=== PATIENT | female | born 1960 | race African-American/Black ===

== ENCOUNTER 2019-05-25 10:35 | Outpatient (CLI) | payer MEDICARE, MEDICAID, SELFPAY ==
--- NOTE | ~2019-05-25 | MMUS_ITS ---
EXAMINATION: US breast biopsy LT w image, MM post biopsy invasive LT, US breast bx add lesion LT DATE: 05/25/2019 12:22 (accession [id number]), 05/25/2019 12:22 (accession [id number]), 08/2019 12:23 (accession [id number]) INDICATION: Patient with bilateral biopsy proven breast cancer presents for evaluation of additional indeterminate left breast masses. Ultrasound-guided core biopsy is requested to evaluate for maligna ncy. TECHNIQUE AND FINDINGS: The risks and potential benefits of the procedure were discussed with the patient patient including b leeding and infection. A time out was performed. The skin of the left breast was prepared and draped in usual sterile fashion. 1% lidocaine was used for superficial anesthesia. 1% lidocaine with epineph rine was used for deep anesthesia. First, a vacuum-assisted biopsy gun needle was advanced through to the outer edge of a mass at the 12 :00 location 3 cm from the nipple of an inferolateral approach utilizing sonographic guidance. A tota l of two tissue core samples were obtained through the lesion. The lesion was no longer visible after the second sampling. A tissue marker clip was then placed at the biopsy site. Hemostasis was achieve d. Next, attention was directed to a mass at the 11:00 location 4 cm from the nipple. 1% lidocaine wa s used for superficial anesthesia and 1% lidocaine with epinephrine was used for deep anesthesia. A v acuum-assisted biopsy gun needle was advanced to the outer edge of the mass using an inferolateral ap proach. A total of two tissue core samples were obtained through the lesion. The patient did not want to undergo a third sampling due to pain. A tissue marker clip was placed at the biopsy site. Hemosta sis was achieved. A sterile bandage was applied to both lesions. There was no evidence of immediate complication. The patient was given verbal instructions to return to the Emergency Department in the event of severe breast pain or rapid breast enlargement. A two vie w left breast mammogram was obtained to document tissue marker clip placement. This demonstrates the biopsy markers in the upper outer breast at the 1:00 location. There is a 7 mm persistent mass locate d 1 cm anterior to the 10:00 mass biopsy on 04/06/2019. IMPRESSION: 1. Successful ultrasound-guided vacuum-assisted biopsy of left breast mass with tissue marker placeme nt. Of note, the biopsied masses are at the approximately 1:00 location in the breast. 2. Persistent mass at the 10:00 location which remains indeterminate. Patient did not tolerate additi onal biopsies at this time and further recommendation will be made pending results of today's biopsie s. Reviewed, dictated and finalized at location A. CLEANER IMPRESSION: 1. Successful ultrasound-guided vacuum-assisted biopsy of left breast mass with tissue marker placement. Of note, the biopsied masses are at the approximately 1:00 location in the breast. 2. Persistent mass at the 10:00 location which remains indeterminate. Patient d id not tolerate additional biopsies at this time and further recommendation eveline l be made pending results of today's biopsies. IMPRESSION: 1. Successful ultrasound-guided vacuum-assisted biopsy of left breast mass with tissue marker placement. Of note, the biopsied masses are at the approximately 1:00 location in the breast. 2. Persistent mass at the 10:00 location which remains indeterminate. Patient d id not tolerate additional biopsies at this time and further recommendation eveline l be made pending results of today's biopsies.
== END 2019-05-25 10:36 | disposition home or self-care (01) ==
LOC: ANHIMG 10:38
PROVIDERS: PCP Emergency Medicine; Visit Provider Surgery
DX: C50.812 Malignant neoplasm of overlapping sites of left female breast (principal)
CPT/HCPCS: 19083; 19084; 88305; 88342; A4648

== ENCOUNTER 2019-08-24 01:18 | Day surgery (SDC) | payer MEDICARE, MEDICAID, SELFPAY ==
[2019-08-23 08:53] VITALS: BMI 39.9
--- NOTE | 2019-08-23 10:06 | PM.SD ---
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 She had a resection of this. She has developed brain metastases but had radiation therapy in 2018 for treatment. She has had MRIs of the brain in February and in April. These showed no evidence of an increasing intracranial mass. 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 She noticed a left breast nodule last fall. She had ultrasound and mammogram in January. The ultrasound showed an 8 mm right breast lesion at 10:00 a.m.. There were actually 4 lesions in the left breast all in the upper inner quadrant. The patient could not tolerate more than 1 or 2 ultrasound-guided core biopsies so she has had 3 different episodes of core biopsies being done. The 1st was on the right breast March 15, 2019. This 8 mm upper outer quadrant lesion was found to be ductal carcinoma in situ with no Lise medial necrosis. She then underwent ultrasound-guided core biopsy of the 10:00 a.m. lesion on the left breast April 06, 2019. 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 The patient was seen in the office by me in April. Her exam was negative other than she has morbid obesity and has a left breast lump at 11:00 a.m.. She desired to have breast conserving surgery. She was sent back to radiology for where ultrasound-guided core biopsy of 2 of the 3 additional left breast lesions were performed. The lesion at 11:00 a.m. 4 cm from the nipple was grade 1 invasive ductal carcinoma. The lesion at 12:00 p.m. 3 cm from the nipple was also invasive ductal carcinoma grade 1. The 11:00 a.m. lesion 3 cm from the nipple was not biopsied but was anticipated to be removed with breast conserving lumpectomy. She was seen back in the office June 21, 2019. Pathology findings were discussed. Left mastectomy with sentinel node biopsy was recommended. The patient however wants to proceed with lumpectomy instead of mastectomy. She is taken to surgery now for wire localization lumpectomy of the for malignant lesions of the upper inner quadrant of the left breast. Left axillary sentinel lymph node biopsy will also be done. She will also have wire localization lumpectomy of the right breast DCIS in the upper outer quadrant at the same operation. [facility] Past Medical History Medical History Abnormal chest xray Abnormal ultrasound of breast Acute UTI Altered mental status Brain metastases Brain tumor Breast lump lt DVT prophylaxis H/O one miscarriage Headache History of depression Lung cancer NSCLC of right lung Pneumonia Right otitis media Sciatica Seizure Seizure disorder Surgical History Surgical History H/O brain surgery H/O dilation and curettage History of lobectomy of lung Family History Family History Sibling Colon cancer Cerebrovascular accident Sibling Stomach cancer Mother Leukemia Diabetes mellitus Father Dementia Cancer Social History Social History Social History: Patient lives alone. She is a full code. She non ate Syeda her daughter to be the individual making medical decisions for her she is unable. She has 3 children. She is on disability. She quit tobacco in 2017. Smoking packs per day: 0.5 Smoking cigarettes per day: 10.0 Years smoked: 40 Smoking pack-years: 20.00 Smoking status: Light tobacco smoker Tobacco type: cigarettes Second hand tobacco smoke exposure: Yes Alcohol intake: never S
[2019-08-24] VITALS (9 sets, daily range): BP systolic 100–138; BP diastolic 62–76; PULSE 68–90; RESP 12–20; TEMP 35.8–36.3; O2SAT 93–100
--- NOTE | ~2019-08-24 | XR_ITS ---
EXAMINATION: XR chest 2V DATE: 08/24/2019 07:05 INDICATION: Breast cancer. Preoperative evaluation/sinus drainage. TECHNIQUE: PA and lateral views of the chest were obtained. COMPARISON: Chest radiograph dated 02/20/[address] dated 01/17/2019 FINDINGS: Again seen are changes of a right thoracotomy with surgical clips along the right side of the mid to upper mediastinum and resection of the posterior right second rib. Right upper lobectomy with volume loss in the right hemithorax and scarring with blunting at the right costophrenic angle. No new airsp cher opacities, pulmonary edema, pleural effusion or pneumothorax. Heart size is normal. IMPRESSION: 1. No acute cardiopulmonary disease. 2. Volume loss in the right hemithorax related to right upper lobectomy for reported prior right lung cancer. Reviewed, dictated and finalized at location A. IMPRESSION: 1. No acute cardiopulmonary disease. 2. Volume loss in the right hemithorax related to right upper lobectomy for rep orted prior right lung cancer.
--- NOTE | ~2019-08-24 | NM_ITS ---
NM sentinel node inject only 08/24/2019 11:43 CDT INDICATION: Left breast cancer] TECHNIQUE: 1 Millicuries Tc 99m filtered sulfur colloid was injected and 4 aliquots in the anterior u pper outer quadrant of the breast near the areola. No images were obtained.] IMPRESSION: 1: Status post left breast sentinel lymph node radiopharmaceutical injection.] Reviewed, dictated and finalized at location A.
--- NOTE | ~2019-08-24 | MM_ITS ---
CORRECTED REPORT ORDER CORRECTED. 11/15/19 sef EXAMINATION: MM needle loc RT, MM surgical specimen RT, MM surgical specimen LT, MM needle loc LT ea add, MM needle loc LT, MM needle loc LT ea add DATE: 08/24/2019 13:44 CDT INDICATION: Bilateral breast cancer. TECHNIQUE: The procedure for a mammography-guided needle localization was discussed with the patient's. Risks and benefits were detailed, including risks of bleeding, infection, pain, and nondiagnostic specimen. The patient verbalized understanding and agreed to proceed. The time out was performed to verify the patient's name, date of , and site of procedure. The patient was placed in bilateral breast compression, and the skin overlying the breasts were prepped in usual fashion. Utilizing mammography guidance, a needle was advanced into the breasts. The 3 lesions of interest in the left breast were bracketed with wires. There is an additional mass medial aspect of the left breast which was localized with wire. The nodule in the upper outer quadrant of the right breast containing the tissue marker was localized with wire. Two confirmatory films were obtained. The patient tolerated procedure without immediate complication. Specimen radiographs were performed.] FINDINGS: Two view confirmatory films of the breasts demonstrate multiple wires adjacent to the lesions of interest. The tissue marker and masses were contained within the surgical specimen.] IMPRESSION: 1. Successful mammography-guided bilateral breast needle localization. Reviewed, dictated and finalized at location A. MTDD IMPRESSION: 1. Successful mammography-guided bilateral breast needle localization. IMPRESSION: 1. Successful mammography-guided bilateral breast needle localization. IMPRESSION: 1. Successful mammography-guided bilateral breast needle localization. IMPRESSION: 1. Successful mammography-guided bilateral breast needle localization. IMPRESSION: 1. Successful mammography-guided bilateral breast needle localization.
[2019-08-24] MEDS: LACTATED RINGERS 1,000 ML 30 ML IV CONT ×2 (06:40→14:02)
[2019-08-24 07:02] LABS: Basophils Absolute Auto 0.1 K/mm3 (0.0-0.1); Basophils Percent Auto 0.4 % (0.2-1.2); Eosinophils Absolute Auto 0.1 K/mm3 (0-0.3); Eosinophils Percent Auto 0.9 % (0-4.4); Hematocrit 43.7 % (37.0-47.0); Hemoglobin 13.7 g/dL (12.0-15.0); Immature Granulocyte Absolute 0.04 K/mm3 (0.00-0.031); Immature Granulocyte Percent A 0.4 % (0-0.5); Lymphocytes Absolute Auto 3.18 K/mm3 (0.9-3.2); Lymphocytes Percent Auto 27.9 % (18.3-44.2); Mean Corpuscular HGB Conc 31.4 g/dl (32-36); Mean Corpuscular Volume 79.7 fl (80-100); Mean Platelet Volume 11.1 fl (7.4-10.4); Monocytes Absolute Auto 0.7 K/mm3 (0.1-0.6); Monocytes Percent Auto 5.9 % (2.6-8.5); Neutrophils Absolute Auto 7.3 K/mm3 (1.3-6.7); Neutrophils Percent Auto 64.5 % (45.5-73.1); Platelet Count Result 230 k/mm3 (150-375); Red Blood Count 5.48 M/mm3 (4.2-5.4); Red Cell Distribution Width 18.1 % (11.5-14.5); White Blood Count 11.4 K/mm3 (4.5-10.0)
[2019-08-24 07:17] LABS: Alanine Aminotransferase 12 U/L (4-35); Albumin Level 4.2 g/dL (3.5-5.1); Alkaline Phosphatase 73 U/L (38-126); Aspartate Amino Transferase 18 U/L (14-36); Bilirubin,Total 0.3 mg/dL (0.2-1.3); Blood Urea Nitrogen 15 mg/dL (7-17); Calcium 9.3 mg/dL (8.4-10.2); Carbon Dioxide 29 mmol/L (22-30); Chloride 106 mmol/L (98-107); Estimated CRCL calculation 65 ml/min; Estimated Glomerular Filt Rate > 60; Glucose 98 mg/dL (65-105); Potassium 4.1 mmol/L (3.4-5.0); Sodium 138 mmol/L (137-145)
--- NOTE | 2019-08-24 09:05 | SUR.PREOP ---
PT TO [facility] AT 0715,RETURNED FROM N.M. AT 0900
--- NOTE | 2019-08-24 09:44 | WPDANESEPPF ---
Anes - Initial Pre Proc Eval Procedure: Operation Date: 08/24/19 10:30 Proposed Procedures p Left Breast Ultrasound and/or Mammogram Guided Needle Localization, Left Breast Lumpectomy With Left [place] Lymph Node Biopsy, - John Washington MD s Right Breast Lumpectomy With Right Breast Ultrasound and/or Mammogram Guided Needle Localization - John Washington MD Date/Time: 08/24/19 09:44 Surgeon: John Washington MD Pre Op Diagnosis: Left breast CA, Right breast DCIS Patient Data Age: 59 Gender: F Height: 5 ft 5 in Weight: 117.3 kg Last Vital Signs Temp 35.8 C L 08/24/19 06:44 Pulse 88 08/24/19 06:44 Resp 18 08/24/19 06:44 BP 100/64 08/24/19 06:44 Pulse Ox 100 08/24/19 06:44 Allergies Allergy/AdvReac Type Severity Reaction Status Date / Time ciprofloxacin Allergy Unknown RASH, EARS Verified 08/24/19 07:20 RINGING aspirin AdvReac Unknown GI UPSET Verified 08/24/19 07:20 AND PAIN ketorolac [From Toradol] AdvReac Anxiety Verified 08/24/19 07:20 Home Medications Medication Instructions Recorded Confirmed Type No Home Medications 08/23/19 08/24/19 History Laboratory Tests 08/24/19 08/24/19 06:57 06:57 WBC 11.4 K/mm3 H K/mm3 (4.5-10.0) RBC 5.48 M/mm3 H M/mm3 (4.2-5.4) Hgb 13.7 g/dL g/dL (12.0-15.0) Hct 43.7 % % (37.0-47.0) MCV 79.7 fl L fl (80-100) MCH 25.0 pg L pg (26-34) MCHC 31.4 g/dl L g/dl (32-36) RDW 18.1 % H % (11.5-14.5) Plt Count 230 k/mm3 k/mm3 (150-375) MPV 11.1 fl H fl (7.4-10.4) Immature Gran % (Auto) 0.4 % % (0-0.5) Neut % (Auto) 64.5 % % (45.5-73.1) Lymph % (Auto) 27.9 % % (18.3-44.2) [place] % (Auto) 5.9 % % (2.6-8.5) Eos % (Auto) 0.9 % % (0-4.4) Baso % (Auto) 0.4 % % (0.2-1.2) Lymph # (Auto) 3.18 K/mm3 K/mm3 (0.9-3.2) [place] # (Auto) 0.7 K/mm3 H K/mm3 (0.1-0.6) Eos # (Auto) 0.1 K/mm3 K/mm3 (0-0.3) Baso # (Auto) 0.1 K/mm3 K/mm3 (0.0-0.1) Abs Immat Gran (auto) 0.04 K/mm3 H K/mm3 (0.00-0.031) Absolute Neuts (auto) 7.3 K/mm3 H K/mm3 (1.3-6.7) Absolute Nucleated RBC 0.0 K/mm3 K/mm3 (0.0-0.012) Nucleated RBC % 0.0 % % (0.0-0.2) Sodium 138 mmol/L mmol/L (137-145) Potassium 4.1 mmol/L mmol/L (3.4-5.0) Chloride 106 mmol/L mmol/L (98-107) Carbon Dioxide 29 mmol/L mmol/L (22-30) BUN 15 mg/dL mg/dL (7-17) Creatinine 1.00 mg/dL mg/dL (0.7-1.0) Estim Creat Clear Calc 65 ml/min ml/min Estimated GFR > 60 (59 - ) Glucose 98 mg/dL mg/dL (65-105) Calcium 9.3 mg/dL mg/dL (8.4-10.2) Total Bilirubin 0.3 mg/dL mg/dL (0.2-1.3) AST 18 U/L U/L (14-36) ALT 12 U/L U/L (4-35) Alkaline Phosphatase 73 U/L U/L (38-126) Total Protein 8.0 g/dL g/dL (6.3-8.2) Albumin 4.2 g/dL g/dL (3.5-5.1) Patient hx anesthesia problems: none Family hx anesthesia problems: none PMFSH Past Medical History Medical History Abnormal chest xray Abnormal ultrasound of breast Acute UTI Altered mental status Brain metastases Brain tumor Breast lump lt DVT prophylaxis H/O one miscarriage Headache History of depression Lung cancer NSCLC of right lung Pneumonia Right otitis media Sciatica Seizure Seizure disorder Surgical History Surgical History H/O brain surgery H/O dilation and curettage History of lobectomy of lung Family History Family History Sibling Colon cancer Cerebrovascular accident Sibling Stomach cancer Mother Leukemia Diabetes mellitus Father Dementia Cancer Social History Social History Socia
--- NOTE | 2019-08-24 10:03 | WPDHPUPDATE1 ---
History and Physical Update Update Date/Time: 08/24/19 10:03 History and Physical has been reviewed, including an updated exam of the patient. There are NO changes in the patient's condition. Risks, benefits, and alternatives have been discussed and questions answered. Patient agrees to proceed with procedure.
[2019-08-24] MEDS: BUPIVACAINE/EPINEPHRINE 0.5% 30 ML VIAL INFILTRATE (13:29)
[2019-08-24] MEDS: ISOSULFAN BLUE 1% INJ 5 ML VIAL SUB-Q (13:54)
--- NOTE | 2019-08-24 14:04 | PM.PROC ---
Procedure Note - Detailed Date of procedure: 08/24/19 Pre-op diagnosis: Left breast CA, Right breast DCIS Invasive ductal carcinoma upper inner quadrant left breast x4, ductal carcinoma in situ right breast upper outer quadrant Post-op diagnosis: same Procedure performed: Wire localization multiple left breast malignant lesions, extensive left breast lumpectomy, left axillary sentinel node biopsy. Wire localization right breast lumpectomy Description of procedure: The patient went to x-ray the morning of surgery and had wire localization of multiple breast cancers of the left breast prior to surgery. She also had wire localization of the DCIS of the right breast prior to surgery. I spoke with the radiologist, Dr. Gagnon, and reviewed x-rays with him. We talked before the wire localization and I reviewed the films with him after the localization. The patient was taken to surgery and induced into general anesthesia. We prepped and draped the left breast and left axilla prepping the left arm mobile in into the field. The right breast was kept taped to avoid moving the localizing wire. This would be attended after we completed the left breast and axillary surgery. Care was taken to avoid moving the localizing wires of the left breast. Radioisotope injection had been done in x-ray prior to the surgery. Isosulfan Blue dye was infiltrated under the nipple and gentle breast massage was carried out. The navigator was then used and areas of high isotope emission in the left axilla were found. A hairline incision was marked on the skin. Incision was made and dissection carried through the subcutaneous fat. As we entered axillary fat, I again used the navigator and found an area of very high isotope emission. Further dissection showed a good sized but not significantly enlarged axillary node. It was not dye stained. I dissected it using primarily the cautery but also clips. Eventually it was completely excised. I confirmed it had very high isotope emission with the navigator. It was sent as left axillary sentinel node 1. I then found a 2nd area of very high isotope emission. This was exposed and dissection to a 2nd enlarged lymph node was carried out. This node was strongly stained with dye. Dye stained lymphatics leading to the node were also found. This node was dissected free from the surrounding axillary tissue. Clips were used to divide the lymphatics going to the node. This had high isotope emission as well. It was dissected free and sent as left axillary sentinel node 2. Further evaluation both by palpation and the navigator showed a 3rd node that had very high isotope emission more in the lateral axilla. This node was not as enlarged as numbers 1 and 2 were. None the less, it had very high isotope emission. It was dissected free using the same technique and submitted as left axillary sentinel node 3. I checked for further nodes of suspicion. None were seen. The axillary wound was closed in layers with interrupted 3 0 Monocryl suture. Subcuticular running 3 0 Monocryl skin stitch was used to close the skin. We then quarantined the axillary incision with a laparotomy sponge and blue towel. We turned our attention to the tumors in the upper mid and inner quadrants of the left breast. A curved incision was drawn on the skin across the upper left breast. The incision was closer to the nipple then the exit sites of the various wires. Local anesthetic was infiltrated into the skin of the incision. Incision was made and dissection was carried no more than a cm into the subcutaneous tissue. From there, I then dissected cephalad and found each of the 3 wires. Each was pulled through the skin and brought out the wound. I then tried to dissect superficially above each of the tumors. The tumor associated with the more cephalad wire however seemed to actually abut the skin. I did try to 1st dissect it off the skin and then dissected around it both in a cephalad an
--- NOTE | 2019-08-24 15:02 | SUR.PHASEI ---
1455 - family called and updated on pt's status.
== END 2019-08-24 16:39 | disposition home or self-care (01) ==
PROVIDERS: PCP Emergency Medicine; Visit Provider Surgery
PROC: (CPT 19301; principal; 2019-08-24 10:30)
PROC: (CPT 19301; 2019-08-24 10:30)
DX: C50.212 Malignant neoplasm of upper-inner quadrant of left female breast (principal); D05.12 Intraductal carcinoma in situ of left breast; D05.11 Intraductal carcinoma in situ of right breast; C77.3 Secondary and unspecified malignant neoplasm of axilla and upper limb lymph nodes; G40.909 Epilepsy, unspecified, not intractable, without status epilepticus; Z85.118 Personal history of other malignant neoplasm of bronchus and lung; Z85.841 Personal history of malignant neoplasm of brain; E66.01 Morbid (severe) obesity due to excess calories; Z68.41 Body mass index [BMI] 40.0-44.9, adult; Z87.891 Personal history of nicotine dependence
CPT/HCPCS: 19301; 38525; 19281; 19282; 36415; 38792; 71046; 76098; 80053; 85025; 88305; 88307; 88342; A9520; C1713; C1769; J0330; J0690; J2250; J2370; J2405; J2704; J2710; J3010; J7120

== ENCOUNTER 2019-09-20 00:27 | Outpatient (CLI) | payer MEDICARE, MEDICAID, SELFPAY ==
[2019-09-20 18:39] LABS: SARS-CoV-2 RNA PCR Negative
== END 2019-09-20 00:28 | disposition home or self-care (01) ==
LOC: ANHCOVIDDT 00:27
PROVIDERS: PCP Emergency Medicine; Visit Provider Surgery
DX: Z01.812 Encounter for preprocedural laboratory examination (principal); Z20.828 Contact with and (suspected) exposure to other viral communicable diseases
CPT/HCPCS: 87635; C9803; U0003

== ENCOUNTER 2019-09-22 00:55 | Day surgery (SDC) | payer MEDICARE, MEDICAID, SELFPAY ==
[2019-09-14 13:14] VITALS: BMI 39.1
[2019-09-22] VITALS (9 sets, daily range): BP systolic 104–136; BP diastolic 61–89; PULSE 65–90; RESP 14–18; TEMP 36.1; O2SAT 72–99
--- NOTE | ~2019-09-22 | NM_ITS ---
EXAMINATION: NM sentinel node inject only DATE: 09/22/2019 13:54 INDICATION: Right breast cancer TECHNIQUE: 1 mCi Tc-99m filtered sulfur colloid was injected in 4 aliquots in the anterior breast leydi r the areola. No images were obtained. IMPRESSION: 1. Right breast sentinel lymph node radiopharmaceutical injection. Reviewed, dictated and finalized at location A.
--- NOTE | 2019-09-22 08:20 | WPDANESEPPF ---
Anes - Initial Pre Proc Eval Procedure: Operation Date: 09/22/19 10:30 Proposed Procedures p Re-Excision Of Right Breast Lumpectomy, Right Axillary [place] Node Biopsy - John Washington MD Date/Time: 09/22/19 08:20 Surgeon: John Washington MD Pre Op Diagnosis: Billateral Breast Cancer Patient Data Age: 59 Gender: F Height: 1.7 m Weight: 113.4 kg Allergies Allergy/AdvReac Type Severity Reaction Status Date / Time ciprofloxacin Allergy Unknown RASH, EARS Verified 09/14/19 13:12 RINGING aspirin AdvReac Unknown GI UPSET Verified 09/14/19 13:12 AND PAIN ketorolac [From Toradol] AdvReac Anxiety Verified 09/14/19 13:12 NSAIDS (Non-Steroidal AdvReac Gastrointestinal Verified 09/14/19 13:12 Anti-Inflamma Upset Home Medications Medication Instructions Recorded Confirmed Type oxycodone-acetaminophen 0.5 - 1 tablet PO Q6H PRN #20 08/24/19 09/14/19 Rx tablet Vitamin B-12 1 tablet PO DAILY 09/14/19 09/14/19 History ascorbic acid (vitamin C) [Vitamin 1 g PO DAILY 09/14/19 09/14/19 History C] garlic 1 cap PO DAILY 09/14/19 09/14/19 History multivitamin 1 tablet PO DAILY 09/14/19 09/14/19 History omega 6-[id number]-fish oil [Fish Oil] 1 cap PO DAILY 09/14/19 09/14/19 History Patient hx anesthesia problems: none Family hx anesthesia problems: none PMFSH Past Medical History Medical History Abnormal chest xray Abnormal ultrasound of breast Acute UTI Altered mental status Anxiety Bilateral breast cancer Brain aneurysm Brain metastases Brain tumor Breast lump lt Depression DVT prophylaxis H/O one miscarriage Headache History of cancer metastatic to brain History of depression Lung cancer Morbid obesity with BMI of 40.0-44.9, adult NSCLC of right lung Pneumonia Right otitis media Sciatica Seizure LAST 04/2019- NON-COMPLIANT WITH MEDICATIONS Seizure disorder Tobacco abuse Surgical History Surgical History H/O brain surgery brain tumor removed 2016 - brain cancer, INTERMITTENT CONFUSION, HEADACHES H/O dilation and curettage History of lobectomy of lung lung cancer lower Right lobe removed in surgery 09/2016- O2 PRN Family History Family History Sibling Colon cancer Cerebrovascular accident Sibling Stomach cancer Mother Leukemia Diabetes mellitus Father Dementia Cancer Social History Social History Social History: Patient lives alone. She is a full code. She non ate Syeda her daughter to be the individual making medical decisions for her she is unable. She has 3 children. She is on disability. She quit tobacco in 2017. Smoking packs per day: 0.5 Smoking cigarettes per day: 10.0 Years smoked: 40 Smoking pack-years: 20.00 Smoking status: Light tobacco smoker Tobacco type: cigarettes Second hand tobacco smoke exposure: Yes Alcohol intake: never Substance use: never Substance use type: does not use Gender identity (if verbalized by the patient): Female Spiritual care concerns: No Agree to blood products: Yes Anes - Eval Final PreProcedure Day of Procedure 09/22/19 08:20 Patient weight: morbidly obese Heart: regular rate and rhythm Lungs: clear to auscultation and normal air movement Airway: Mallampati scale class II Neurological: alert and oriented Last oral intake: >/= 8 hours ASA classification: IV Emergent: no Anesthetic plan: proceed Anesthesia type and monitoring: general ETT Informed Consent: The patient's anesthetic plan and its attendant risks and benefits were discussed with the patient/family/POA. Questions were solicited and answers provided to the satisfaction of the patient/family/POA.
[2019-09-22] MEDS: LACTATED RINGERS 1,000 ML 30 ML IV CONT ×2 (10:05→12:45)
--- NOTE | 2019-09-22 10:09 | SUR.PREOP ---
1009 pt left for nuc med
--- NOTE | 2019-09-22 10:29 | WPDHPUPDATE1 ---
History and Physical Update Update Date/Time: 09/22/19 10:29 History and Physical has been reviewed, including an updated exam of the patient. There are NO changes in the patient's condition. Risks, benefits, and alternatives have been discussed and questions answered. Patient agrees to proceed with procedure.
--- NOTE | 2019-09-22 10:50 | SUR.PREOP ---
1033 pt returned from nuc med
[2019-09-22] MEDS: ceFAZolin 2 GM/D5W 50 ML 2 GM/50 ML BAG IVPB (11:02)
[2019-09-22] MEDS: ISOSULFAN BLUE 1% INJ 5 ML VIAL SUB-Q (11:40)
--- NOTE | 2019-09-22 11:42 | SUR.PREOP ---
0900 pt was not here, called pt she said she was sleeping and thought she had to be here at 1030. She said she will be here in 30 minutes
--- NOTE | 2019-09-22 12:05 | SUR.OPER ---
Breast specimens sent fresh for permanent with MARILYN Hunter and received in pathology by Lucero
[2019-09-22] MEDS: BUPIVACAINE/EPINEPHRINE 0.5% 30 ML VIAL INFILTRATE (12:10)
--- NOTE | 2019-09-22 12:29 | SUR.OPER ---
Dale transported specimens and were received by Penelope in pathology.
--- NOTE | 2019-09-22 12:51 | PM.PROC ---
Procedure Note - Detailed Date of procedure: 09/22/19 Pre-op diagnosis: Invasive cancer, right breast Invasive ductal cancer right breast, positive margins after lumpectomy Post-op diagnosis: same Procedure performed: Right axillary sentinel lymph node biopsy, margin re-excision right breast Description of procedure: The patient was taken to surgery and induced into general anesthesia. The right breast and axilla were prepped and draped. The right arm was prepped and draped such that it was mobile in in the field. The patient had been to x-ray before surgery for radioisotope injection under the right nipple. The navigator was used to survey the right axilla. An area of high isotope emission was marked on the skin. A hairline axillary incision was marked on the skin. Lymphazurin blue dye was then infiltrated under the right nipple. Gentle breast massage was carried out. The right axillary incision was then made and dissection was carried down through the superficial subcutaneous tissue. We encountered a very superficial but enlarged, dye stained right axillary lymph node. This was carefully dissected free from the surrounding subcutaneous. Several dye stained lymphatics were leading to the lymph node and these were each clipped and divided. Vascular structures were either clipped or cauterized and divided. Eventually this lymph node was dissected free. I rechecked it again with the navigator. It had a very high isotope emission. It was also stained intensely blue. This was passed off to pathology as right axillary sentinel lymph node 1. The navigator was then again placed in the right axilla. A 2nd lymph node that was deeper than the 1st was identified using the navigator. We exposed this area and found another lymph node. This was also dye stained but less intensely than the 1st node. This again was dissected using blunt and sharp dissection. Clips were used for lymphatics and the cautery was used as well. Eventually this node was removed. It was not as large as node 1. It did have some dye staining and I rechecked it for isotope emission. Emission was very high. This was sent as right axillary sentinel node 2. We rechecked again in the axilla and found another area of high isotope emission closer to the right axillary vein. This area was exposed. Dissection here showed actually 2 lymph nodes very close together. These were carefully dissected free using the same technique. Once these 2 lymph nodes were removed they were dissected apart from 1 another. Neither was dye stained nor enlarged. One of the nodes had a very high isotope emission. This was sent as left axillary sentinel node 3. The other lymph node did not have isotope emission. It was sent as an additional left axillary lymph node. We checked again with the navigator and really found no other areas of increased isotope emission. I palpated in the axilla and explored as well. No other suspicious nodes were found. The axilla was then closed in layers with interrupted 3 0 Monocryl suture. Subcuticular interrupted 3 0 Monocryl skin stitches were placed. A running 4 0 Monocryl subcuticular skin suture was placed. The wound was dressed with Exofin surgical adhesive. Once this adhesive had dried, we then turned our attention to the right breast re-excision lumpectomy. Local anesthetic using 0.5% Marcaine with epinephrine was infiltrated into the previous right breast lumpectomy scar. This was then again opened and dissection through the subcutaneous was carried out. A pocket with seroma was found. The seroma cavity extended cephalad from the incision. I extended the incision cephalad so that the entire previous lumpectomy pocket was well visualized and access to the pocket was excellent. I then exposed the lateral margin. A 5-10 mm width of breast tissue was excised from the lumpectomy cavity corresponding to the lateral margin. A suture was placed on the inner aspect. This was sent a
--- NOTE | 2019-09-22 13:21 | SUR.PHASEI ---
1321 - pt c/o tongue feeling swollen. left side of tongue appears swollen. dr. avelar called and updated. no orders received. pt denies SOB. vss
--- NOTE | 2019-09-22 13:37 | SUR.PHASEI ---
1643 - dr. avelar at bedside. assessing pt's tongue swelling.
[2019-09-22] MEDS: ONDANSETRON INJ 4 MG/2 ML VIAL IV PUSH (13:44)
== END 2019-09-22 15:20 | disposition home or self-care (01) ==
PROVIDERS: PCP Emergency Medicine; Visit Provider Surgery
PROC: (CPT 19301; principal; 2019-09-22 10:30)
DX: C50.911 Malignant neoplasm of unspecified site of right female breast (principal); C77.3 Secondary and unspecified malignant neoplasm of axilla and upper limb lymph nodes; F41.8 Other specified anxiety disorders; Z85.841 Personal history of malignant neoplasm of brain; Z85.118 Personal history of other malignant neoplasm of bronchus and lung; G40.909 Epilepsy, unspecified, not intractable, without status epilepticus; Z91.14 Patient's other noncompliance with medication regimen; E66.01 Morbid (severe) obesity due to excess calories; Z68.41 Body mass index [BMI] 40.0-44.9, adult; Z90.2 Acquired absence of lung [part of]; Z87.891 Personal history of nicotine dependence
CPT/HCPCS: 19301; 38525; 38792; 88305; 88307; 88342; A9520; C1713; J0690; J1100; J1170; J2250; J2405; J2704; J2710; J3010; J7030; J7120

== ENCOUNTER 2019-10-25 09:28 | Outpatient (CLI) | payer MEDICARE, MEDICAID, SELFPAY ==
--- NOTE | ~2019-10-25 | PE_ITS ---
EXAMINATION: PET skull to mid thigh DATE: 10/25/2019 12:13 INDICATION: Breast cancer TECHNIQUE: Blood glucose level was 105 mg/dL. 9.536 mCi of 18-fluorodeoxyglucose (18-FDG) was adminis tered i.v. Low dose computed tomography (CT) images were acquired from the base of the brain to the p roximal thighs for attenuation correction and anatomic localization. Positron emission tomography (PE T) images were acquired in the same distribution beginning 69 minutes after injection. Images includi ng fused PET/CT images were reconstructed in axial, coronal, and sagittal planes. Automated exposure control technique was employed. The dose-length product was 1251.46mGy-cm. COMPARISON: PET/CT dated 04/01/[address] dated 01/17/2019 FINDINGS: Head/neck: There is a region of decreased FDG uptake underlying a small right occipital craniotomy likely relate d to encephalomalacia post treatment of an early or metastatic lesion. There is symmetric increased a ctivity in the nasal and oral cavities, palatine tonsils, parotid glands, submandibular glands, linda ngeal muscles and ocular muscles without CT correlate, likely physiologic. No pathologically enlarged cervical lymphadenopathy or suspicious foci of increased FDG uptake in the visualized head or neck. Chest: Postoperative change of prior bilateral breast lumpectomies and bilateral axillary lymph node dissect ions. There is mild FDG uptake along the peripheral margins of a 3 x 1.8 cm centrally fluid attenuati on likely postoperative seroma overlying the left pectoralis muscle. Skin thickening with mild increa sed FDG uptake in both breasts. Postoperative change of prior right upper lobectomy with resection of the posterior right second rib. Mild emphysema. Interval increase in size of a now 4.2 x 2.0 cm pleu ral-based mass at the anterolateral base of the right lower lobe which demonstrates mild increased FD G uptake with maximal SUV of 3.0. The mass is increase in size since the most recent CT at which time it measured approximately 3.1 x 1.2 cm in corresponding dimensions although the degree of FDG uptake is significantly less than at the time of the prior PET study at which time the maximal SUV was 8.2. Lungs are otherwise clear with no other suspicious pulmonary nodules, pneumonia, pulmonary edema or pleural effusion. Heart size is normal. No pericardial effusion. No pathologically enlarged or FDG av id thoracic lymphadenopathy. Abdomen/pelvis/proximal thighs: Physiologic renal accumulation and excretion of FDG activity in the kidneys, bladder and along portio ns of ureters. Normal degree and heterogenous pattern of increased uptake throughout the liver withou t radiologic correlate or dominant FDG avid lesion. The gallbladder, pancreas, spleen and bilateral a drenal glands are normal. Mild uptake scattered throughout the bowels without radiologic correlate, a lso likely physiologic. Anteverted fibroid uterus with coarse calcifications within several of the ut erine fibroids. There is a small region of relatively intense FDG uptake at the right side of the cer vix with maximal SUV of 12.3 which is concerning for cervical cancer. No other abnormal foci of incre ased FDG uptake or pathologically enlarged lymphadenopathy in the abdomen, pelvis or proximal thighs. Musculoskeletal: Age-indeterminate inferior endplate compression fracture at C5 which is new since the prior study but without increased FDG uptake to suggest acute fracture. No suspicious lytic, blastic or FDG avid bon e lesions. IMPRESSION: 1. Postoperative changes of bilateral breast lumpectomies and axillary lymph node dissections with mi ld increased uptake at the postoperative bed site both breasts with small residual seroma on the left . This most likely represents residual reactive change related to the recent surgery although differe ntial would include residual malignancy. 2. Mild increase
[2019-10-25 10:17] LABS: Estimated Glomerular Filt Rate > 60
[2019-10-25 10:37] LABS: Glucose Point of Care 105 (65-105)
== END 2019-10-25 09:29 | disposition home or self-care (01) ==
PROVIDERS: PCP Emergency Medicine; Visit Provider Radiology Radiation Oncology
DX: C34.11 Malignant neoplasm of upper lobe, right bronchus or lung (principal); C34.31 Malignant neoplasm of lower lobe, right bronchus or lung; C50.411 Malignant neoplasm of upper-outer quadrant of right female breast; C50.812 Malignant neoplasm of overlapping sites of left female breast; C79.31 Secondary malignant neoplasm of brain
CPT/HCPCS: 36415; 78815; A9552

== ENCOUNTER 2020-02-06 14:41 | Outpatient (CLI) | payer MEDICARE, MEDICAID, SELFPAY ==
--- NOTE | ~2020-02-06 | MR_ITS ---
EXAMINATION: MR brain/brain stem wo/w con DATE: 02/06/2020 16:26 INDICATION: Malignant neoplasm metastatic to brain. TECHNIQUE: Magnetic resonance imaging (MRI) of the brain and brainstem was performed without and with 20 mL MultiHance intravenous contrast. Sequences included sagittal and axial T1-weighted FSE, axial diffusion-weighted FS EPI, axial T2*-weighted GRE, axial T2-weighted FLAIR Propeller, and axial T2-we ighted Propeller. The patient vomited and terminated the exam before postcontrast T1-weighted imaging . Apparent diffusion coefficient (ADC) maps were created. COMPARISON: Brain MRI 05/10/2019 FINDINGS: There is chronic encephalomalacia in right occipital lobe with foci of old blood products v ersus calcification. There are scattered areas of nonspecific increased T2-weighted signal intensity in the cerebral white matter, which is within normal limits for the patient's age. There is no abnorm al mass lesion. The ventricles are normal in size. The paranasal sinuses are clear. The mastoid air c ells are normal. There are changes of right posterior craniotomy. IMPRESSION: 1. Chronic encephalomalacia in right occipital lobe. Reviewed, dictated and finalized at location A.
[2020-02-06 15:51] LABS: Estimated Glomerular Filt Rate > 60
== END 2020-02-06 14:42 | disposition home or self-care (01) ==
PROVIDERS: PCP Emergency Medicine; Visit Provider Radiology Radiation Oncology
DX: C79.31 Secondary malignant neoplasm of brain (principal); G93.89 Other specified disorders of brain
CPT/HCPCS: 70553; A9577

== ENCOUNTER 2020-02-16 20:35 | Emergency (ER) | payer MEDICARE, MEDICAID, SELFPAY ==
--- NOTE | ~2020-02-16 | CT_ITS ---
EXAMINATION: CT BRAIN W/O DATE: 02/16/2020 21:54 INDICATION: Mental status. Seizures. TECHNIQUE: Computed tomography (CT) of the head was performed without intravenous contrast. The dose- length product was 605.33 mGy-cm. The mA was adjusted according to patient size. Iterative reconstruction technique was employed. COMPARISON: No prior studies for comparison. FINDINGS: Normal brain parenchymal volume for age. Normal burleson-white differentiation. No acute intrac ranial hemorrhage, infarction, mass or mass effect. No ventriculomegaly or midline shift. Midline sagittal images demonstrate a normal corpus callosum, c raniovertebral junction and sella turcica. Basilar cisterns are patent. Paranasal sinuses and mastoids are pneumatized. No depressed skull fractures. IMPRESSION: 1. No acute intracranial abnormality. Reviewed, dictated and finalized at location A.
--- NOTE | ~2020-02-16 | XR_ITS ---
XR chest 1V portable 02/16/2020 22:01 Indication: Covid Positive. Transient alteration of awareness. Procedure: AP portable chest Comparison: Comparison to multiple prior studies sequentially, with oldest reviewed study dated . Findings: There are ill-defined infiltrates of the upper, mid and lower lung zones bilaterally. Heart size normal. No pleural effusion or pneumothorax. Impression: 1: Diffuse bilateral infiltrates which may represent pneumonia or edema. Reviewed, dictated and finalized at location A. Impression: 1: Diffuse bilateral infiltrates which may represent pneumonia or edema.
[2020-02-16 20:28] VITALS: TEMP 37.8
--- NOTE | 2020-02-16 21:29 | ECG_ITS ---
Measurements Intervals [place] Rate: 96 P: 65 ID: [id number] QRS: 42 QRSD: 94 T: 49 QT: 338 QTc: 429 Interpretive Statements SINUS RHYTHM NORMAL ECG Electronically Signed On 02-17-2020 7:00:06 CDT by Dev Tang D.O.
[2020-02-16 21:37] VITALS: BP 128/73; PULSE 95; RESP 20; TEMP 36.7; O2SAT 97
[2020-02-16 21:44] LABS: Basophils Percent Auto 0.3 % (0.2-1.2); Eosinophils Percent Auto 0.1 % (0-4.4); Hematocrit 43.5 % (37.0-47.0); Hemoglobin 13.4 g/dL (12.0-15.0); Immature Granulocyte Absolute 0.03 K/mm3 (0.00-0.031); Immature Granulocyte Percent A 0.4 % (0-0.5); Lymphocytes Percent Auto 24.1 % (18.3-44.2); Mean Corpuscular HGB Conc 30.8 g/dl (32-36); Mean Corpuscular Volume 81.2 fl (80-100); Mean Platelet Volume 10.9 fl (7.4-10.4); Monocytes Absolute Auto 0.5 K/mm3 (0.1-0.6); Monocytes Percent Auto 6.8 % (2.6-8.5); Neutrophils Absolute Auto 4.8 K/mm3 (1.3-6.7); Neutrophils Percent Auto 68.3 % (45.5-73.1); Platelet Count Result 151 k/mm3 (150-375); Red Blood Count 5.36 M/mm3 (4.2-5.4); Red Cell Distribution Width 16.5 % (11.5-14.5); White Blood Count 7.1 K/mm3 (4.5-10.0)
[2020-02-16 21:53] LABS: INR 0.9; Prothrombin Time 11.6 Seconds (11.1-14.7)
[2020-02-16 21:54] LABS: Partial Thromboplastin Time 28.8 SECONDS (22.3-36.8)
[2020-02-16 21:55] LABS: Anion Gap 5 mmol/L (8-16); Blood Urea Nitrogen 12 mg/dL (7-17); Calcium 8.7 mg/dL (8.4-10.2); Carbon Dioxide 31 mmol/L (22-30); Chloride 102 mmol/L (98-107); Estimated CRCL calculation 69 ml/min; Estimated Glomerular Filt Rate > 60; Glucose 104 mg/dL (65-105); Potassium 4.6 mmol/L (3.4-5.0); Sodium 138 mmol/L (137-145)
[2020-02-16] MEDS: levETIRAcetam 1000MG/NACL100ML 1,000 MG/100 ML BAG 400 MG IVPB (21:57)
[2020-02-16] MEDS: LORazepam INJ (*CRX) 2 MG/ML VIAL 0.5 MG IV PUSH (21:58)
[2020-02-16 22:07] LABS: Troponin I < 0.012 ng/mL (0.000-0.034)
[2020-02-16 23:30] VITALS: BP 121/72; PULSE 78; RESP 18; O2SAT 97
--- NOTE | 2020-02-16 23:36 | PC.NURSE ---
Called lab to add on BNP
[2020-02-16 23:56] LABS: NT Pro B Type Natriuretic Pept 27 PG/ML (5-100)
--- NOTE | 2020-02-17 00:11 | ED.GENADULT ---
HPI - General Adult General Chief complaint: Altered Mental Status Stated complaint: ams/covid + Time Seen by Provider: 02/16/20 20:51 History of Present Illness HPI narrative: Patient is a 59-year-old female who presents ER with change in mental status. Patients family member reports that at home patient developed left-sided weakness and then her head started bouncing looking at the left side. Patient then became confused. This is happened before supper times. Patient has history of brain surgery for tumor excision in 2018. She had a plain MRI from 10 days ago. There is some chronic encephalomalacia noted however. Sounds as if patient is supposed to take Keppra at home but does not. She has been seen for similar symptoms earlier in the year here. Of note patient was diagnosed with Covid 10 days ago and was [facility] Therefore patient is no longer having fevers but still has some residual cough. Related Data Home Medications Medication Instructions Recorded Confirmed Vitamin B-12 1 tablet PO DAILY 09/14/19 10/12/19 ascorbic acid (vitamin C) [Vitamin 1 g PO DAILY 09/14/19 10/12/19 C] garlic 1 cap PO DAILY 09/14/19 10/12/19 multivitamin 1 tablet PO DAILY 09/14/19 10/12/19 omega 3-pcx-kfn-fish oil [Fish Oil] 1 cap PO DAILY 09/14/19 10/12/19 Allergies Allergy/AdvReac Type Severity Reaction Status Date / Time ciprofloxacin Allergy Unknown RASH, EARS Verified 10/10/19 10:08 RINGING aspirin AdvReac Unknown GI UPSET Verified 10/10/19 10:08 AND PAIN ketorolac [From Toradol] AdvReac Anxiety Verified 10/10/19 10:08 NSAIDS (Non-Steroidal AdvReac Gastrointestinal Verified 10/10/19 10:08 Anti-Inflamma Upset Review of Systems Review of Systems: All systems reviewed & are unremarkable except as noted in HPI and below Constitutional: Constitutional: Denies chills, Denies fever(s) and Denies weakness Cardiovascular: Cardiovascular: Denies chest pain and Denies radiating jaw, neck or arm pain Gastrointestinal: Gastrointestinal: Denies abdominal pain, Denies nausea and Denies vomiting Neurologic: Reports headache(s) and Reports focal weakness (resolved) [facility] Past Medical History Medical History (Updated 02/17/20 @ 00:33 by Sawyer Maldonado MD) Abnormal chest xray Abnormal ultrasound of breast Acute UTI Altered mental status Anxiety Bilateral breast cancer Brain aneurysm Brain metastases Brain tumor Breast lump lt Depression DVT prophylaxis H/O one miscarriage Headache History of cancer metastatic to brain History of depression Lung cancer Morbid obesity with BMI of 40.0-44.9, adult NSCLC of right lung Pneumonia Right otitis media Sciatica Seizure LAST 04/2019- NON-COMPLIANT WITH MEDICATIONS Seizure disorder Tobacco abuse Surgical History Surgical History H/O brain surgery brain tumor removed 2017 - brain cancer, INTERMITTENT CONFUSION, HEADACHES H/O dilation and curettage History of lobectomy of lung lung cancer lower Right lobe removed in surgery 09/2016- O2 PRN Family History Family History Sibling Colon cancer Cerebrovascular accident Sibling Stomach cancer Mother Leukemia Diabetes mellitus Father Dementia Cancer Social History Social History Social History: Patient lives alone. She is a full code. She non ate Syeda her daughter to be the individual making medical decisions for her she is unable. She has 3 children. She is on disability. She quit tobacco in 2017. Smoking packs per day: 0.5 Smoking cigarettes per day: 10.0 Years smoked: 40 Smoking pack-years: 20.00 Smoking status: Light tobacco smoker Tobacco type: cigarettes Second hand tobacco smoke exposure: Yes Alcohol intake: never Substance use: never Substance use type: d
[2020-02-17 00:24] VITALS: BP 108/53; PULSE 81; RESP 18; TEMP 36.8; O2SAT 96
[2020-02-17 01:21] VITALS: BP 103/69; PULSE 84; RESP 18; TEMP 36.8; O2SAT 96
== END 2020-02-17 01:23 | disposition home or self-care (01) ==
PROVIDERS: Emergency Provider Emergency Medicine; PCP Emergency Medicine
DX: G40.909 Epilepsy, unspecified, not intractable, without status epilepticus (principal); U07.1 COVID-19; J12.89 Other viral pneumonia; Z87.891 Personal history of nicotine dependence; Z87.440 Personal history of urinary (tract) infections; Z85.3 Personal history of malignant neoplasm of breast; E66.01 Morbid (severe) obesity due to excess calories; Z68.38 Body mass index [BMI] 38.0-38.9, adult; Z85.841 Personal history of malignant neoplasm of brain; Z90.2 Acquired absence of lung [part of]; Z85.118 Personal history of other malignant neoplasm of bronchus and lung
CPT/HCPCS: 36415; 70450; 71045; 80048; 83880; 84484; 85025; 85610; 85730; 93005; 96365; 96368; 96375; 99284; J0131; J1953; J2060

== ENCOUNTER 2020-02-20 19:36 | Emergency (ER) | payer MEDICARE, MEDICAID, SELFPAY ==
--- NOTE | ~2020-02-20 | XR_ITS ---
EXAMINATION: XR chest 1V portable DATE: 02/20/2020 20:57 INDICATION: Shortness of breath. TECHNIQUE: A single frontal view of the chest was obtained. COMPARISON: Chest single view 02/16/2020, PET CT 10/25/2019 FINDINGS: There are surgical changes of right upper lobectomy. There is mild scarring in right lower lung zone. No pleural effusion or pneumothorax. The heart size is normal. There are surgical clips in left axilla. IMPRESSION: 1. Mild scarring in right lower lung zone. Reviewed, dictated and finalized at location A. GLASS TECHNICIAN
[2020-02-20 19:37] VITALS: BP 125/66; PULSE 94; RESP 18; TEMP 37.1; O2SAT 96
--- NOTE | 2020-02-20 20:06 | ECG_ITS ---
Measurements Intervals [place] Rate: 92 P: 55 NE: 173 QRS: 37 QRSD: 96 T: 41 QT: 357 QTc: 443 Interpretive Statements SINUS RHYTHM BASELINE ARTIFACT- V1 NORMAL ECG Electronically Signed On 02-21-2020 6:18:46 CELL FEED DEPARTMENT SUPERVISOR by Dev Tang D.O.
--- NOTE | 2020-02-20 20:54 | ED.SOB ---
HPI - SOB/Dyspnea General Chief Complaint: Shortness of Breath/Dyspnea Stated Complaint: sob/nausea Time Seen by Provider: 02/20/20 20:54 History of Present Illness HPI Narrative: 59 yo female presents with weakness and SOB. She was diagnosed with COVID-19 about 2 weeks ago. She then presneted to the ED 4 days ago for SOB. She was found to have pneumonia on CXR. She was started on azithromycin. She has continued to feel SOB and weak since that time. Today she was feeling particulary bad so she called EMS. He daughter reports that she has not really been eating or drinking for a few days. Related Data Home Medications Medication Instructions Recorded Confirmed Vitamin B-12 1 tablet PO DAILY 09/14/19 10/12/19 ascorbic acid (vitamin C) [Vitamin 1 g PO DAILY 09/14/19 10/12/19 C] garlic 1 cap PO DAILY 09/14/19 10/12/19 multivitamin 1 tablet PO DAILY 09/14/19 10/12/19 omega 9-gkk-ggb-fish oil [Fish Oil] 1 cap PO DAILY 09/14/19 10/12/19 Allergies Allergy/AdvReac Type Severity Reaction Status Date / Time ciprofloxacin Allergy Unknown RASH, EARS Verified 10/10/19 10:08 RINGING aspirin AdvReac Unknown GI UPSET Verified 10/10/19 10:08 AND PAIN ketorolac [From Toradol] AdvReac Anxiety Verified 10/10/19 10:08 NSAIDS (Non-Steroidal AdvReac Gastrointestinal Verified 10/10/19 10:08 Anti-Inflamma Upset Review of Systems Review of Systems: All systems reviewed & are unremarkable except as noted in HPI and below Constitutional: Constitutional: Reports fatigue, Denies fever(s) and Reports weakness Cardiovascular: Cardiovascular: Denies chest pain Respiratory: Respiratory: Reports dyspnea Gastrointestinal: Gastrointestinal: Denies abdominal pain, Denies nausea and Denies vomiting Genitourinary: Genitourinary: Denies dysuria Neurologic: Reports dizziness and Reports weakness PMFSH Past Medical History Medical History Abnormal chest xray Abnormal ultrasound of breast Acute UTI Altered mental status Anxiety Bilateral breast cancer Brain aneurysm Brain metastases Brain tumor Breast lump lt Depression DVT prophylaxis H/O one miscarriage Headache History of cancer metastatic to brain History of depression Lung cancer Morbid obesity with BMI of 40.0-44.9, adult NSCLC of right lung Pneumonia Right otitis media Sciatica Seizure LAST 04/2019- NON-COMPLIANT WITH MEDICATIONS Seizure disorder Tobacco abuse Surgical History Surgical History H/O brain surgery brain tumor removed 2017 - brain cancer, INTERMITTENT CONFUSION, HEADACHES H/O dilation and curettage History of lobectomy of lung lung cancer lower Right lobe removed in surgery 09/2016- O2 PRN Family History Family History Sibling Colon cancer Cerebrovascular accident Sibling Stomach cancer Mother Leukemia Diabetes mellitus Father Dementia Cancer Social History Social History Social History: Patient lives alone. She is a full code. She non ate Syeda her daughter to be the individual making medical decisions for her she is unable. She has 3 children. She is on disability. She quit tobacco in 2017. Smoking packs per day: 0.5 Smoking cigarettes per day: 10.0 Years smoked: 40 Smoking pack-years: 20.00 Smoking status: Light tobacco smoker Tobacco type: cigarettes Second hand tobacco smoke exposure: Yes Alcohol intake: never Substance use: never Substance use type: does not use Gender identity (if verbalized by the patient): Female Spiritual care concerns: No Agree to blood products: Yes Exam Const: General: no acute distress and alert Nutritional Appearance: well nourished Orientation/consciousness: patient oriented x3 HENMT: Mouth: Yes dry mucous membranes R
[2020-02-20 21:16] LABS: Basophils Percent Auto 0.3 % (0.2-1.2); Eosinophils Percent Auto 0.3 % (0-4.4); Hematocrit 43.8 % (37.0-47.0); Hemoglobin 13.5 g/dL (12.0-15.0); Immature Granulocyte Absolute 0.02 K/mm3 (0.00-0.031); Immature Granulocyte Percent A 0.3 % (0-0.5); Lymphocytes Absolute Auto 1.78 K/mm3 (0.9-3.2); Lymphocytes Percent Auto 29.1 % (18.3-44.2); Mean Corpuscular HGB Conc 30.8 g/dl (32-36); Mean Corpuscular Hemoglobin 24.7 pg (26-34); Mean Corpuscular Volume 80.1 fl (80-100); Mean Platelet Volume 10.8 fl (7.4-10.4); Monocytes Absolute Auto 0.5 K/mm3 (0.1-0.6); Monocytes Percent Auto 8.2 % (2.6-8.5); Neutrophils Absolute Auto 3.8 K/mm3 (1.3-6.7); Neutrophils Percent Auto 61.8 % (45.5-73.1); Platelet Count Result 165 k/mm3 (150-375); Red Blood Count 5.47 M/mm3 (4.2-5.4); Red Cell Distribution Width 15.9 % (11.5-14.5); White Blood Count 6.1 K/mm3 (4.5-10.0)
[2020-02-20 21:27] LABS: Anion Gap 6 mmol/L (8-16); Blood Urea Nitrogen 14 mg/dL (7-17); Carbon Dioxide 31 mmol/L (22-30); Chloride 103 mmol/L (98-107); Estimated CRCL calculation 69 ml/min; Estimated Glomerular Filt Rate > 60; Glucose 104 mg/dL (65-105); Sodium 140 mmol/L (137-145)
[2020-02-20] MEDS: ALBUTEROL SULFATE NEB 2.5 MG/0.5 ML INH 5 MG INHALATION (21:43)
[2020-02-20 22:09] VITALS: BP 113/79
[2020-02-20] MEDS: SODIUM CHLORIDE 0.9% IV 1,000 ML 999 ML IV CONT (23:19)
[2020-02-21 00:37] VITALS: BP 114/61; PULSE 99; RESP 18; TEMP 37; O2SAT 96
--- NOTE | 2020-02-22 22:29 | PC.NURSE ---
LATE ENTRY This note is being entered to document information to the patient's record. The following information was omitted on [Normal Saline started at 02/20/2020 at 2319 and ended 02/21/2020 at 0020], by [Nancy Schafer].
== END 2020-02-21 00:40 | disposition home or self-care (01) ==
PROVIDERS: Emergency Provider Emergency Medicine; PCP Emergency Medicine
DX: E86.0 Dehydration (principal); U07.1 COVID-19; J12.89 Other viral pneumonia; G40.909 Epilepsy, unspecified, not intractable, without status epilepticus; Z87.440 Personal history of urinary (tract) infections; Z85.3 Personal history of malignant neoplasm of breast; Z85.118 Personal history of other malignant neoplasm of bronchus and lung; E66.01 Morbid (severe) obesity due to excess calories; Z68.39 Body mass index [BMI] 39.0-39.9, adult; Z90.2 Acquired absence of lung [part of]; F17.210 Nicotine dependence, cigarettes, uncomplicated
CPT/HCPCS: 36415; 71045; 80048; 85025; 93005; 96360; 99284; J7030

== ENCOUNTER 2020-04-05 19:29 | Emergency (ER) | payer MEDICARE, MEDICAID, SELFPAY ==
--- NOTE | ~2020-04-05 | XR_ITS ---
EXAMINATION: XR ribs RT 2V w CXR 2V EXAM DATE: 04/05/2020 20:12 INDICATION: Right-sided chest wall pain for couple of weeks. No known recent injury. TECHNIQUE: Frontal projection of the upper right ribs, frontal projection of the lower right ribs, ob lique projection of the right ribs, frontal and lateral chest x-ray(s) for interpretation. Comparison is made to prior examination from 02/20/2020. FINDINGS: There is acute mildly displaced right 7th rib fracture. This finding has been indicated, ma rked on the examination for review, clinical correlation. There is no soft tissue abnormality seen. No confluent consolidation, pneumothorax or pleural effusion suspected. Again there is blunting of t he right costophrenic recess. Again there are large bridging lower thoracic endplate osteophytes. Lef t axillary surgical clips. Mediastinal surgical clips. IMPRESSION: 1. Mildly displaced right 7th rib fracture. 2. Chronic right pleural blunting. Reviewed, dictated and finalized at location G. PER AND RECEIVING
[2020-04-05 19:31] VITALS: BP 115/65; PULSE 88; RESP 20; TEMP 36.5; O2SAT 99
--- NOTE | 2020-04-05 19:53 | ECG_ITS ---
Measurements Intervals [place] Rate: 72 P: 58 NV: 177 QRS: 43 QRSD: 90 T: 62 QT: 379 QTc: 416 Interpretive Statements SINUS RHYTHM EARLY PRECORDIAL R/S TRANSITION LOW QRS VOLTAGE IN PRECORDIAL LEADS BASELINE WANDER- I, II, AVR, AVL, AVF BORDERLINE ECG Electronically Signed On 04-06-2020 6:39:49 ENGINE REPAIR SUPERVISOR by Dev Tang D.O.
--- NOTE | 2020-04-05 20:00 | PC.NURSE ---
patient has order for SL insert and EKG. patient not in room.
--- NOTE | 2020-04-05 20:23 | ED.GENADULT ---
HPI - General Adult General Chief complaint: Unspecified Stated complaint: Right sided rib pain Time Seen by Provider: 04/05/20 19:48 History of Present Illness HPI narrative: Patient 60-year-old female presents to the emergency department with chief complaint of right-sided chest pain. The patient states that she has a sharp type pain under her right breast states it hurts whenever she moves or takes a deep breath. The patient states that it started hurting after she helped lift someone and feels a pop whenever she moves around. Patient states she is concerned that she may have broken a rib. Related Data Home Medications Medication Instructions Recorded Confirmed Vitamin B-12 1 tablet PO DAILY 09/14/19 10/12/19 ascorbic acid (vitamin C) [Vitamin 1 g PO DAILY 09/14/19 10/12/19 C] garlic 1 cap PO DAILY 09/14/19 10/12/19 multivitamin 1 tablet PO DAILY 09/14/19 10/12/19 omega 3-ycd-rve-fish oil [Fish Oil] 1 cap PO DAILY 09/14/19 10/12/19 Allergies Allergy/AdvReac Type Severity Reaction Status Date / Time ciprofloxacin Allergy Unknown RASH, EARS Verified 10/10/19 10:08 RINGING cefaclor [From Ceclor] Allergy Other Verified 04/05/20 19:36 aspirin AdvReac Unknown GI UPSET Verified 10/10/19 10:08 AND PAIN ketorolac [From Toradol] AdvReac Anxiety Verified 10/10/19 10:08 NSAIDS (Non-Steroidal AdvReac Gastrointestinal Verified 10/10/19 10:08 Anti-Inflamma Upset Review of Systems Review of Systems: Narrative: CONSTITUTIONAL: Denies fever, chills, or sweats. EYES: Denies visual changes, redness, or discharge. ENT: Denies rhinorrhea, congestion, sore throat, or otalgia. CARDIOVASCULAR: Denies chest pain, palpitations, or edema. RESPIRATORY: Denies cough or dyspnea. GASTROINTESTINAL: Denies abdominal pain, nausea, vomiting, or diarrhea. GENITOURINARY: Denies dysuria or hematuria. SKIN: Denies rash or itching. MUSCULOSKELETAL: Denies back pain, joint pain, or myalgia. NEUROLOGIC: Denies headache, numbness, or weakness. PSYCHIATRIC: Denies anxiety or depression. A 10 system review of systems was completed on the patient and is negative except for what is stated in the HPI. Nursing and ancillary documentation was reviewed. [facility] Past Medical History Medical History (Updated 04/06/20 @ 00:00 by Delmi Chong) Abnormal chest xray Abnormal ultrasound of breast Acute UTI Altered mental status Anxiety Bilateral breast cancer Brain aneurysm Brain metastases Brain tumor Breast lump lt Depression DVT prophylaxis H/O one miscarriage Headache History of cancer metastatic to brain History of depression Lung cancer Morbid obesity with BMI of 40.0-44.9, adult NSCLC of right lung Pneumonia Right otitis media Sciatica Seizure LAST 04/2019- NON-COMPLIANT WITH MEDICATIONS Seizure disorder Tobacco abuse Surgical History Surgical History H/O brain surgery brain tumor removed 2016 - brain cancer, INTERMITTENT CONFUSION, HEADACHES H/O dilation and curettage History of lobectomy of lung lung cancer lower Right lobe removed in surgery 09/2016- O2 PRN Family History Family History Sibling Colon cancer Cerebrovascular accident Sibling Stomach cancer Mother Leukemia Diabetes mellitus Father Dementia Cancer Social History Social History Social History: Patient lives alone. She is a full code. She non ate Syeda her daughter to be the individual making medical decisions for her she is unable. She has 3 children. She is on disability. She quit tobacco in 2017. Smoking packs per day: 0.5 Smoking cigarettes per day: 10.0 Years smoked: 40 Smoking pack-years: 20.00 Smoking status: Light tobacco smoker Tobacco type: cigarettes Second hand tobacco smoke exposure: Yes Alcohol intake: never
[2020-04-05 20:32] VITALS: O2SAT 98
[2020-04-05 20:35] VITALS: BP 125/64; PULSE 82; RESP 18; O2SAT 98
[2020-04-05] MEDS: HYDROcodone/acetaminophen (*CRX) 5-325 MG TABLET 2 TAB PO (20:44)
== END 2020-04-05 21:21 | disposition home or self-care (01) ==
PROVIDERS: Emergency Provider Emergency Medicine; PCP Emergency Medicine
DX: S22.31XA Fracture of one rib, right side, initial encounter for closed fracture (principal); Z87.440 Personal history of urinary (tract) infections; Z85.3 Personal history of malignant neoplasm of breast; Z85.118 Personal history of other malignant neoplasm of bronchus and lung; Z85.841 Personal history of malignant neoplasm of brain; Z90.2 Acquired absence of lung [part of]; Z87.891 Personal history of nicotine dependence; X50.0XXA Overexertion from strenuous movement or load, initial encounter
CPT/HCPCS: 71046; 71100; 93005; 99283; A9270

== ENCOUNTER 2020-04-13 18:17 | Emergency (ER) | payer MEDICARE, MEDICAID, SELFPAY ==
--- NOTE | ~2020-04-13 | XR_ITS ---
XR chest 2V 04/13/2020 19:23 Indication: Cough. Recent rib fracture. Procedure: AP and lateral views of the chest Comparison: Comparison to multiple prior studies sequentially, with oldest reviewed study dated 09/2019. Findings: Chronic right lower lateral pleural thickening. Elevated right diaphragm. There is a right seventh rib fracture. There are postsurgical changes in the mediastinum and left axilla. No acute foc al pneumonia, edema or effusion. Impression: 1: Right seventh rib fracture unchanged. 2: Chronic pleural thickening right lower lateral chest. Reviewed, dictated and finalized at location A. ENFORCEMENT INSPECTOR Impression: 1: Right seventh rib fracture unchanged. 2: Chronic pleural thickening right lower lateral chest.
[2020-04-13 18:23] VITALS: BP 127/71; PULSE 92; RESP 18; TEMP 37.1; O2SAT 100
--- NOTE | 2020-04-13 18:31 | ED.URI ---
HPI - URI/Sore Throat General Chief Complaint: Upper Respiratory Infection Stated Complaint: rib pain (recent fx), cough, congestion Time Seen by Provider: 04/13/20 18:31 History of Present Illness HPI Narrative: Recently diagnosed with right sided rib fracture. Continues to have pain and has run out of pain medication. She also has a mild cough. She previously had COVID-19 in January. Her duaghter brought her in because she was concerned that the ongoing pain may be due to pneumonia. No fever, SOB, weakness. Related Data Home Medications Medication Instructions Recorded Confirmed Vitamin B-12 1 tablet PO DAILY 09/14/19 10/12/19 ascorbic acid (vitamin C) [Vitamin 1 g PO DAILY 09/14/19 10/12/19 C] garlic 1 cap PO DAILY 09/14/19 10/12/19 multivitamin 1 tablet PO DAILY 09/14/19 10/12/19 omega 0-mfa-zmm-fish oil [Fish Oil] 1 cap PO DAILY 09/14/19 10/12/19 Allergies Allergy/AdvReac Type Severity Reaction Status Date / Time ciprofloxacin Allergy Unknown RASH, EARS Verified 10/10/19 10:08 RINGING cefaclor [From Ceclor] Allergy Other Verified 04/05/20 19:36 gadobenic acid Allergy Vomiting Verified 04/13/20 18:30 [From contrast - MRI] aspirin AdvReac Unknown GI UPSET Verified 10/10/19 10:08 AND PAIN ketorolac [From Toradol] AdvReac Anxiety Verified 10/10/19 10:08 NSAIDS (Non-Steroidal AdvReac Gastrointestinal Verified 10/10/19 10:08 Anti-Inflamma Upset Review of Systems Review of Systems: All systems reviewed & are unremarkable except as noted in HPI and below Constitutional: Constitutional: Denies chills, Denies fever(s) and Denies weakness ENT: Denies sore throat Cardiovascular: Cardiovascular: Denies radiating jaw, neck or arm pain Respiratory: Respiratory: Reports cough and Denies dyspnea Gastrointestinal: Gastrointestinal: Denies abdominal pain and Denies nausea Musculoskeletal: Musculoskeletal: Denies back pain Neurologic: Denies dizziness and Denies weakness PMFSH Past Medical History Medical History Abnormal chest xray Abnormal ultrasound of breast Acute UTI Altered mental status Anxiety Bilateral breast cancer Brain aneurysm Brain metastases Brain tumor Breast lump lt Depression DVT prophylaxis H/O one miscarriage Headache History of cancer metastatic to brain History of depression Lung cancer Morbid obesity with BMI of 40.0-44.9, adult NSCLC of right lung Pneumonia Right otitis media Sciatica Seizure LAST 04/2019- NON-COMPLIANT WITH MEDICATIONS Seizure disorder Tobacco abuse Surgical History Surgical History H/O brain surgery brain tumor removed 2017 - brain cancer, INTERMITTENT CONFUSION, HEADACHES H/O dilation and curettage History of lobectomy of lung lung cancer lower Right lobe removed in surgery 09/2016- O2 PRN Family History Family History Sibling Colon cancer Cerebrovascular accident Sibling Stomach cancer Mother Leukemia Diabetes mellitus Father Dementia Cancer Social History Social History Social History: Patient lives alone. She is a full code. She non ate Syeda her daughter to be the individual making medical decisions for her she is unable. She has 3 children. She is on disability. She quit tobacco in 2017. Smoking packs per day: 0.5 Smoking cigarettes per day: 10.0 Years smoked: 40 Smoking pack-years: 20.00 Smoking status: Light tobacco smoker Tobacco type: cigarettes Second hand tobacco smoke exposure: Yes Alcohol intake: never Substance use: never Substance use type: does not use Gender identity (if verbalized by the patient): Female Sexual Orientation (if Verbalized by the Patient): Straight or Heterosexual Spiritual care concerns: No Agree to blood products:
[2020-04-13] MEDS: CYCLOBENZAPRINE HCL 10 MG TABLET PO (18:55)
[2020-04-13] MEDS: HYDROcodone/acetaminophen (*CRX) 5-325 MG TABLET 1 TAB PO (18:55)
--- NOTE | 2020-04-13 19:17 | PC.NURSE ---
Patient taken to xray.
[2020-04-13 20:41] VITALS: BP 124/64; PULSE 81; RESP 19; O2SAT 100
== END 2020-04-13 20:43 | disposition home or self-care (01) ==
PROVIDERS: Emergency Provider Emergency Medicine; PCP Emergency Medicine
DX: S22.31XD Fracture of one rib, right side, subsequent encounter for fracture with routine healing (principal); Z86.19 Personal history of other infectious and parasitic diseases; Z87.440 Personal history of urinary (tract) infections; Z85.3 Personal history of malignant neoplasm of breast; Z85.841 Personal history of malignant neoplasm of brain; Z85.118 Personal history of other malignant neoplasm of bronchus and lung; E66.01 Morbid (severe) obesity due to excess calories; Z68.39 Body mass index [BMI] 39.0-39.9, adult; G40.909 Epilepsy, unspecified, not intractable, without status epilepticus; Z87.891 Personal history of nicotine dependence; X58.XXXD Exposure to other specified factors, subsequent encounter
CPT/HCPCS: 71046; 99283; A9270

== ENCOUNTER 2020-06-27 10:59 | Emergency (ER) | payer MEDICARE, MEDICAID, SELFPAY ==
[2020-06-27] VITALS (16 sets, daily range): BP systolic 107–154; BP diastolic 47–75; PULSE 78–85; RESP 16–18; TEMP 35.8; O2SAT 94–100
--- NOTE | ~2020-06-27 | CT_ITS ---
EXAMINATION: CT abdomen pelvis wo con EXAM DATE: 06/27/2020 14:07 INDICATION: Diverticulitis, lower abdominal pain, nausea. TECHNIQUE: Spiral CT of the abdomen and pelvis was performed without contrast. Axial, coronal and s agittal images were reviewed. The dose-length product (DLP) for this examination was 950.01 mGy-cm. The exposure was tailored according to patient size (auto mA exposure control), and iterative recons truction (ASIR) was used as additional dose reduction technique. Comparison is made to prior examinat ion from 10/25/[address] FINDINGS: The liver, spleen, adrenal glands and pancreas are unremarkable. Gallbladder is unremarkab le. No biliary obstruction. There is no nephrolithiasis or hydronephrosis. Fibroid uterus. The b ladder is unremarkable. There is no retroperitoneal or pelvic lymphadenopathy. There is mild to mo derate scattered arteriosclerotic disease. There are no findings to suggest appendicitis. The stomach and small bowel are unremarkable. No appr eciable colonic diverticulosis. There is expected amount of colonic stool. No free intraperitoneal gas. The heart is normal in size. There are no pericardial or pleural effusions. There is extensive mixed osteoblastic and osteolytic disease. Subacute appearing right 7th rib fractu re laterally, could be pathological given that there are multiple rib lesions identified. There is pl eural-based masslike density measuring about 1 x 4 cm contiguous to this, not significantly changed, could be atelectasis but correlate with prior PET/CT report. IMPRESSION: 1. Interval development of extensive osseous metastatic disease with subacute pathologic right 7th r ib fracture laterally. 2. Adjacent pleural-based opacity which could be chronic atelectasis. Malignancy not excludable. 3. No acute intra-abdominal findings. Reviewed, dictated and finalized at location B. TURNER IMPRESSION: 1. Interval development of extensive osseous metastatic disease with subacute pathologic right 7th rib fracture laterally. 2. Adjacent pleural-based opacity which could be chronic atelectasis. Malignan cy not excludable. 3. No acute intra-abdominal findings.
--- NOTE | ~2020-06-27 | XR_ITS ---
EXAMINATION: XR abdomen/kub 1V DATE: 06/27/2020 11:49 INDICATION: Constipation. Left abdominal pain. TECHNIQUE: A supine view of the abdomen on 2 radiographs was obtained. COMPARISON: PET CT 10/25/2019 FINDINGS: There are no dilated loops of bowel. There is a small volume of stool in the colon. There a re calcified fibroids in the uterus. IMPRESSION: 1. Normal bowel gas pattern. 2. Uterine fibroids. Reviewed, dictated and finalized at location A. 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
[2020-06-27 12:31] LABS: Basophils Percent Auto 0.4 % (0.2-1.2); Eosinophils Absolute Auto 0.1 K/mm3 (0-0.3); Eosinophils Percent Auto 0.7 % (0-4.4); Hematocrit 36.6 % (37.0-47.0); Hemoglobin 11.4 g/dL (12.0-15.0); Immature Granulocyte Absolute 0.41 K/mm3 (0.00-0.031); Lymphocytes Absolute Auto 2.93 K/mm3 (0.9-3.2); Mean Corpuscular HGB Conc 31.1 g/dl (32-36); Mean Corpuscular Hemoglobin 24.6 pg (26-34); Mean Platelet Volume 9.9 fl (7.4-10.4); Monocytes Absolute Auto 0.4 K/mm3 (0.1-0.6); Monocytes Percent Auto 4.5 % (2.6-8.5); Neutrophils Absolute Auto 4.4 K/mm3 (1.3-6.7); Neutrophils Percent Auto 53.4 % (45.5-73.1); Nucleated Red Blood Cells Perc 0.4 % (0.0-0.2); Platelet Count Result 137 k/mm3 (150-375); Red Blood Count 4.63 M/mm3 (4.2-5.4); Red Cell Distribution Width 18.1 % (11.5-14.5); White Blood Count 8.2 K/mm3 (4.5-10.0)
[2020-06-27 12:42] LABS: Alanine Aminotransferase 30 U/L (4-35); Alkaline Phosphatase 200 U/L (38-126); Anion Gap 6 mmol/L (8-16); Aspartate Amino Transferase 66 U/L (14-36); Bilirubin,Total 0.4 mg/dL (0.2-1.3); Blood Urea Nitrogen 13 mg/dL (7-17); Calcium 9.2 mg/dL (8.4-10.2); Carbon Dioxide 28 mmol/L (22-30); Chloride 106 mmol/L (98-107); Estimated CRCL calculation 46 ml/min; Estimated Glomerular Filt Rate > 60; Glucose 99 mg/dL (65-105); Lipase 174 U/L (23-300); Potassium 4.3 mmol/L (3.4-5.0); Sodium 140 mmol/L (137-145)
--- NOTE | 2020-06-27 13:36 | ED.ABDPAIN ---
HPI - Abdominal Pain General Chief Complaint: Abdominal Pain Stated Complaint: abd pain Time Seen by Provider: 06/27/20 11:12 History of Present Illness HPI narrative: Patient is a 60-year-old female who presents ER with left mid abdominal pain. Cramping and worsening over the last couple of days. Associated with some constipation. Also reports mild nausea without vomiting. No fevers or chills or sweats. Has taken some stool softeners without improvement. She has been without fevers or chills or sweats. Has not had similar symptoms previously. Related Data Home Medications Medication Instructions Recorded Confirmed multivitamin 1 tablet PO DAILY 09/14/19 10/12/19 Allergies Allergy/AdvReac Type Severity Reaction Status Date / Time ciprofloxacin Allergy Unknown RASH, EARS Verified 10/10/19 10:08 RINGING cefaclor [From Ceclor] Allergy Muscle Verified 06/27/20 12:00 Spasms iohexol Allergy Unknown Verified 06/27/20 13:05 [From contrast - CT, X-RAY] aspirin AdvReac Unknown GI UPSET Verified 06/27/20 12:00 AND PAIN gadobenic acid AdvReac Vomiting Verified 06/27/20 11:36 [From contrast - MRI] ketorolac [From Toradol] AdvReac Anxiety Verified 10/10/19 10:08 NSAIDS (Non-Steroidal AdvReac Gastrointestinal Verified 10/10/19 10:08 Anti-Inflamma Upset Review of Systems Review of Systems: All systems reviewed & are unremarkable except as noted in HPI and below Constitutional: Constitutional: Denies chills, Denies fever(s) and Denies weakness ENT: Denies nasal congestion and Denies sore throat Respiratory: Respiratory: Denies cough and Denies dyspnea Gastrointestinal: Gastrointestinal: Reports abdominal pain, Reports constipation, Denies diarrhea, Reports nausea and Denies vomiting Genitourinary: Genitourinary: Denies nocturia, Denies dysuria and Denies flank pain [facility] Past Medical History Medical History (Updated 06/27/20 @ 15:36 by Sawyer Maldonado MD) Abnormal chest xray Abnormal ultrasound of breast Acute UTI Altered mental status Anxiety Bilateral breast cancer Brain aneurysm Brain metastases Brain tumor Breast lump lt Depression DVT prophylaxis H/O one miscarriage Headache History of cancer metastatic to brain History of depression Lung cancer Morbid obesity with BMI of 40.0-44.9, adult NSCLC of right lung Pneumonia Right otitis media Sciatica Seizure LAST 04/2019- NON-COMPLIANT WITH MEDICATIONS Seizure disorder Tobacco abuse Surgical History Surgical History H/O brain surgery brain tumor removed 2017 - brain cancer, INTERMITTENT CONFUSION, HEADACHES H/O dilation and curettage History of lobectomy of lung lung cancer lower Right lobe removed in surgery 09/2016- O2 PRN Family History Family History Sibling Colon cancer Cerebrovascular accident Sibling Stomach cancer Mother Leukemia Diabetes mellitus Father Dementia Cancer Social History Social History Social History: Patient lives alone. She is a full code. She non ate Syeda her daughter to be the individual making medical decisions for her she is unable. She has 3 children. She is on disability. She quit tobacco in 2017. Smoking packs per day: 0.5 Smoking cigarettes per day: 10.0 Years smoked: 40 Smoking pack-years: 20.00 Smoking status: Light tobacco smoker Tobacco type: cigarettes Second hand tobacco smoke exposure: Yes Alcohol intake: never Substance use: never Substance use type: does not use Gender identity (if verbalized by the patient): Female Spiritual care concerns: No Agree to blood products: Yes Exam Narrative: Exam Narrative: GENERAL: Well-appearing, well-nourished, and in no acute distress. HEAD: Normocephalic, atraumatic. CHEST: Clear to auscultation. No r
[2020-06-27] MEDS: DICYCLOMINE HCL INJ 20 MG/2 ML VIAL IM (14:15)
== END 2020-06-27 15:42 | disposition home or self-care (01) ==
PROVIDERS: Emergency Provider Emergency Medicine; PCP Emergency Medicine
DX: K59.00 Constipation, unspecified (principal); C80.1 Malignant (primary) neoplasm, unspecified; C79.51 Secondary malignant neoplasm of bone; F17.210 Nicotine dependence, cigarettes, uncomplicated; F41.9 Anxiety disorder, unspecified; F32.9 Major depressive disorder, single episode, unspecified; G40.909 Epilepsy, unspecified, not intractable, without status epilepticus
CPT/HCPCS: 36415; 74018; 74176; 80053; 83690; 85025; 96372; 99284; J0500

== ENCOUNTER 2020-11-10 02:41 | Emergency (ER) | payer MEDICARE, MEDICAID, SELFPAY ==
[2020-11-09 23:57] VITALS: BP 98/54; PULSE 95; RESP 18; TEMP 36.9; O2SAT 100
--- NOTE | 2020-11-10 02:40 | PC.NURSE ---
Patient's daughter states she will take patient home. She requested to have IV removed. Patient left ED with her daughter at [id number].
== END 2020-11-10 04:00 | disposition left against medical advice (07) ==
PROVIDERS: PCP Emergency Medicine
DX: R52 Pain, unspecified (principal)
CPT/HCPCS: 99199

== ENCOUNTER 2020-11-28 22:01 | Emergency (ER) | payer MEDICARE, MEDICAID, SELFPAY ==
--- NOTE | ~2020-11-28 | XR_ITS ---
EXAMINATION: XR shoulder LT min 2V DATE: 11/28/2020 22:32 INDICATION: Left-sided neck and shoulder pain. TECHNIQUE: AP internally and externally rotated, AP oblique externally rotated and transscapular Y vi ews of the left shoulder were obtained. COMPARISON: None FINDINGS: Numerous small lytic bone lesions in the ribs, left clavicle, scapula and proximal left humerus consi stent with widespread metastatic disease. Normal alignment. Callus formation surrounding a nondisplac ed posterior left sixth rib fracture. Suggestion of possible additional nondisplaced posterior left f ourth and fifth rib fractures without evident callus formation. No fracture at the left shoulder. Mil d left glenohumeral and acromioclavicular osteoarthritis. Amorphous calcification consistent with jeri cific tendinitis at the distal supraspinatus tendon. Suture line and surgical clips at the right hilu m, additional surgical clips at the right apex and surgical clips at the left axilla. IMPRESSION: 1. Numerous scattered small lytic lesions consistent with widespread metastatic disease. 2. Healing posterior left sixth rib fracture with suspicion for additional more acute nondisplaced po sterior left fourth and fifth rib fractures without evident callus formation. 3. Supraspinatus calcific tendinitis. 4. Mild left glenohumeral and acromio clavicular osteoarthritis. No acute osseous abnormality at the left shoulder. Reviewed, dictated and finalized at location A. IMPRESSION: 1. Numerous scattered small lytic lesions consistent with widespread metastatic disease. 2. Healing posterior left sixth rib fracture with suspicion for additional more acute nondisplaced posterior left fourth and fifth rib fractures without evide nt callus formation. 3. Supraspinatus calcific tendinitis. 4. Mild left glenohumeral and acromio clavicular osteoarthritis. No acute osseo us abnormality at the left shoulder.
--- NOTE | ~2020-11-28 | CT_ITS ---
EXAMINATION: CT cervical spine wo con DATE: 11/29/2020 03:16 INDICATION: Neck pain, severe. Metastatic cancer. TECHNIQUE: Computed tomography (CT) of the cervical spine was performed without intravenous contrast. Automated exposure control and iterative reconstruction technique were employed. Exam dose: 372.62 mGy-cm total exam DLP. COMPARISON: None FINDINGS: There is straightening of cervical spine which may be due to muscle spasm and/or positionin g. C1 and C2 are normally aligned and the odontoid process is intact. No fracture or locked facet or pre vertebral soft tissue swelling. The examination is quite remarkable for the presence of extensive osteolytic metastatic disease throu ghout the cervical spine involving anterior and posterior elements. There is moderately severe degenerative disc disease at C5-6. Extensive osteolytic metastatic disease of the included upper thoracic spine and ribs. 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 Reviewed, dictated and finalized at location A. IMPRESSION: Extensive osteolytic metastatic disease throughout the cervical sp ine
[2020-11-28 22:07] VITALS: BP 109/76; PULSE 105; RESP 14; TEMP 36.9; O2SAT 100
[2020-11-29] VITALS (8 sets, daily range): BP systolic 102–115; BP diastolic 59–68; PULSE 95–106; RESP 18–23; TEMP 37.1; O2SAT 96–98
[2020-11-29] MEDS: ONDANSETRON HCL ODT 4 MG TABLET PO (02:50)
[2020-11-29] MEDS: HYDROmorphone HCL INJ (*CRX) 1 MG/ML SYR IM (02:50)
--- NOTE | 2020-11-29 02:51 | ED.UPPEXIN ---
HPI - Extremity Injury (Upper) General Chief Complaint: Extremity Injury, Upper Stated Complaint: generalized body aches/pain-hx of multiple cancers Time Seen by Provider: 11/29/20 02:10 Source: patient, RN notes reviewed and old records reviewed Mode of arrival: ambulatory Limitations: no limitations History of Present Illness HPI narrative: This is a 60 year old female with history metastatic lung cancer who presents for evaluation of left and left shoulder pain. Patient has known bone metastases. She reports pain to neck and left shoulder gradually worsening over the past 2 days. She denies recent trauma. Her pain is worse with touching and movement. She has been taking Tylenol without relief. She denies arm swelling, numbness or weakness. She also denies fever. Related Data Home Medications Medication Instructions Recorded Confirmed multivitamin 1 tablet PO DAILY 09/14/19 09/18/20 Allergies Allergy/AdvReac Type Severity Reaction Status Date / Time ciprofloxacin Allergy Unknown RASH, EARS Verified 09/18/20 11:34 RINGING cefaclor [From Ceclor] Allergy Muscle Verified 09/18/20 11:34 Spasms iohexol Allergy Unknown Verified 09/18/20 11:34 [From contrast - CT, X-RAY] aspirin AdvReac Unknown GI UPSET Verified 09/18/20 11:34 AND PAIN gadobenic acid AdvReac Vomiting Verified 09/18/20 11:34 [From contrast - MRI] ketorolac [From Toradol] AdvReac Anxiety Verified 09/18/20 11:34 NSAIDS (Non-Steroidal AdvReac Gastrointestinal Verified 09/18/20 11:34 Anti-Inflamma Upset Review of Systems Review of Systems: All systems reviewed & are unremarkable except as noted in HPI and below PMFSH Past Medical History Medical History (Updated 11/29/20 @ 05:29 by Linda Olivarez MD) Abnormal chest xray Abnormal ultrasound of breast Acute UTI Altered mental status Anxiety Bilateral breast cancer Brain aneurysm Brain metastases Brain tumor Breast lump lt Depression DVT prophylaxis H/O one miscarriage Headache History of cancer metastatic to brain History of depression Lung cancer Morbid obesity with BMI of 40.0-44.9, adult NSCLC of right lung Pneumonia Right otitis media Sciatica Seizure LAST 04/2019- NON-COMPLIANT WITH MEDICATIONS Seizure disorder Tobacco abuse Surgical History Surgical History (Updated 08/13/20 @ 11:47 by Checo Tavera MD) H/O brain surgery brain tumor removed 2017 - brain cancer, INTERMITTENT CONFUSION, HEADACHES H/O dilation and curettage History of lobectomy of lung lung cancer lower Right lobe removed in surgery 09/2016- O2 PRN Family History Family History Sibling Colon cancer Cerebrovascular accident Sibling Stomach cancer Mother Leukemia Diabetes mellitus Father Dementia Cancer Social History Social History Social History: Patient lives alone. She is a full code. She non ate Syeda her daughter to be the individual making medical decisions for her she is unable. She has 3 children. She is on disability. She quit tobacco in 2017. Smoking packs per day: 0.5 Smoking cigarettes per day: 10.0 Years smoked: 40 Smoking pack-years: 20.00 Smoking status: Light tobacco smoker Tobacco type: cigarettes Second hand tobacco smoke exposure: Yes Alcohol intake: never Substance use: never Substance use type: does not use Gender identity (if verbalized by the patient): Female Spiritual care concerns: No Agree to blood products: Yes Exam Const: General: alert Orientation/consciousness: patient oriented x3 Eyes: EOM: EOMs intact bilaterally Resp: Effort & Inspection: normal respiratory effort and no retractions Auscultation: clear to auscultation bilaterally Cardio: Rate: regular rate Rhythm: regular rhythm Heart sounds: no murmurs GI: GI Palp: Yes Soft to pal
== END 2020-11-29 05:49 | disposition home or self-care (01) ==
PROVIDERS: Emergency Provider General Practice; PCP Emergency Medicine
DX: M75.32 Calcific tendinitis of left shoulder (principal); C79.51 Secondary malignant neoplasm of bone; E66.01 Morbid (severe) obesity due to excess calories; Z68.32 Body mass index [BMI] 32.0-32.9, adult; G40.909 Epilepsy, unspecified, not intractable, without status epilepticus; Z85.118 Personal history of other malignant neoplasm of bronchus and lung; Z85.841 Personal history of malignant neoplasm of brain; Z87.01 Personal history of pneumonia (recurrent); Z90.2 Acquired absence of lung [part of]; Z87.440 Personal history of urinary (tract) infections; Z87.891 Personal history of nicotine dependence; M19.012 Primary osteoarthritis, left shoulder
CPT/HCPCS: 72125; 73030; 96372; 99284; A9270; J1170

== ENCOUNTER 2021-02-04 08:57 | Inpatient (IN) | payer MEDICARE, MEDICAID, SELFPAY ==
[2021-02-04] VITALS (9 sets, daily range): BP systolic 97–118; BP diastolic 42–76; PULSE 78–98; RESP 15–23; TEMP 36.1–36.6; O2SAT 95–99; BMI 32.5
--- NOTE | ~2021-02-04 | CT_ITS ---
EXAMINATION: CT abdomen pelvis wo con DATE: 02/04/2021 09:40 INDICATION: Abdominal pain TECHNIQUE: Computed tomography (CT) of the abdomen and pelvis was performed without intravenous contr ast. The dose-length product was 899.40 mGy-cm. Automated exposure control and iterative reconstructi on technique were employed. COMPARISON: CT dated 06/27/2020. FINDINGS: There is a pleural-based right lower lobe mass with adjacent rib fracture, possibly patholo gic. There is extensive mixed lysis and sclerosis of the bones, consistent with widespread metastatic disease. Small pleural effusions. Heart size normal. Extensive diffuse subcutaneous edema, consisten t with anasarca. Enlarged fibroid uterus. The liver, spleen, pancreas, adrenal glands and kidneys are unremarkable for noncontrast CT. Gallblad ariane is present. Trace ascites. Nonobstructive bowel gas pattern. No free air. No pathologically enlar ged lymph nodes. Bladder is present. IMPRESSION: 1. Enlarging pleural-based right lower lobe mass, consistent with metastatic disease. There is a cont iguous rib fracture, likely pathologic. 2: New small pleural effusions, possibly malignant. 3: Extensive widespread osseous metastases. Reviewed, dictated and finalized at location B. IMPRESSION: 1. Enlarging pleural-based right lower lobe mass, consistent with metastatic di sease. There is a contiguous rib fracture, likely pathologic. 2: New small pleural effusions, possibly malignant. 3: Extensive widespread osseous metastases.
[2021-02-04 09:30] LABS: Basophils Percent Auto 0.6 % (0.2-1.2); Eosinophils Percent Auto 0.1 % (0-4.4); Hematocrit 27.4 % (37.0-47.0); Hemoglobin 7.9 g/dL (12.0-15.0); Immature Granulocyte Absolute 0.08 K/mm3 (0.00-0.031); Immature Granulocyte Percent A 1.2 % (0-0.5); Immature Platelet Fraction Pct 8.2 % (0.9-11.2); Lymphocytes Absolute Auto 0.93 K/mm3 (0.9-3.2); Lymphocytes Percent Auto 13.8 % (18.3-44.2); Mean Corpuscular HGB Conc 28.8 g/dl (32-36); Mean Corpuscular Volume 97.2 fl (80-100); Monocytes Absolute Auto 0.5 K/mm3 (0.1-0.6); Monocytes Percent Auto 6.8 % (2.6-8.5); Neutrophils Absolute Auto 5.2 K/mm3 (1.3-6.7); Neutrophils Percent Auto 77.5 % (45.5-73.1); Nucleated Red Blood Cells Absolute Auto 0.1 K/mm3 (0.0-0.012); Nucleated Red Blood Cells Perc 1.9 % (0.0-0.2); Platelet Count Result 55 k/mm3 (150-375); Red Blood Count 2.82 M/mm3 (4.2-5.4); Red Cell Distribution Width 22.7 % (11.5-14.5); White Blood Count 6.8 K/mm3 (4.5-10.0)
[2021-02-04 09:38] LABS: Alanine Aminotransferase 19 U/L (4-35); Albumin Level 3.9 g/dL (3.5-5.1); Alkaline Phosphatase 158 U/L (38-126); Anion Gap 7 mmol/L (8-16); Aspartate Amino Transferase 67 U/L (14-36); Bilirubin,Total 0.6 mg/dL (0.2-1.3); Blood Urea Nitrogen 8 mg/dL (7-17); Calcium 8.4 mg/dL (8.4-10.2); Carbon Dioxide 27 mmol/L (22-30); Chloride 109 mmol/L (98-107); Estimated CRCL calculation 66 ml/min; Estimated Glomerular Filt Rate > 60; Glucose 98 mg/dL (65-110); Lipase 96 U/L (23-300); Potassium 3.7 mmol/L (3.4-5.0); Sodium 143 mmol/L (137-145)
[2021-02-04 09:47] LABS: Platelet Estimate Decreased (Adequate)
[2021-02-04 09:48] LABS: Anisocytosis 1+ (NORMAL); Hypochromasia 1+ (NORMAL)
[2021-02-04 10:14] LABS: Bilirubin Urine Negative (Negative); Blood Urine Negative (Negative); Color Urine Yellow (Yellow); Glucose Urine UA Negative (Negative); Ketones Urine Negative (Negative); Leukocyte Esterase Ur Negative LEU/UL (Negative); Nitrate Urine Negative (Negative); Protein Urine Negative (Negative); Urobilinogen Urine 0.2 mg/dL (<2.0); pH Urine 6.5 (5.0-9.0)
[2021-02-04 10:19] LABS: Add Urine Microscopic? YES; Appearance Urine Sl Cloudy (Clear)
[2021-02-04 10:22] LABS: WBC Urine 0-3 /hpf (0-3)
[2021-02-04 10:23] LABS: RBC Urine 0-2 /hpf (0-2); Squamous Epithelial Cell Urine Few /hpf (Few)
--- NOTE | 2021-02-04 10:52 | ED.GENADULT ---
HPI - General Adult General Chief complaint: Abdominal Pain Stated complaint: abd pain Time Seen by Provider: 02/04/21 09:17 Source: patient Mode of arrival: ambulatory Limitations: no limitations History of Present Illness HPI narrative: Patient presents with chief complaint of upper abdominal/epigastric pain that is sharp as well as shortness of breath over the past 2 to 3 weeks. Patient reports that she has lung cancer that has metastasized to her brain, breast and uterus. Patient states that she is a patient of Dr. Jennings and Dr. Tavera. Patient states that she has refused chemotherapy but completed radiation approximately 3 weeks ago. Patient reports having nausea but denies vomiting. She denies chest pain, diarrhea. She reports she has been able to drink fluids but does report eating and drinking increase her nausea. Related Data Home Medications Medication Instructions Recorded Confirmed multivitamin 1 tablet PO DAILY 09/14/19 02/04/21 Allergies Allergy/AdvReac Type Severity Reaction Status Date / Time ciprofloxacin Allergy Unknown RASH, EARS Verified 02/04/21 14:37 RINGING cefaclor [From Ceclor] Allergy Muscle Verified 02/04/21 14:37 Spasms iohexol Allergy Unknown Verified 02/04/21 14:37 [From contrast - CT, X-RAY] aspirin AdvReac Unknown GI UPSET Verified 02/04/21 14:37 AND PAIN gadobenic acid AdvReac Vomiting Verified 02/04/21 14:37 [From contrast - MRI] ketorolac [From Toradol] AdvReac Anxiety Verified 02/04/21 14:37 NSAIDS (Non-Steroidal AdvReac Gastrointestinal Verified 02/04/21 14:37 Anti-Inflamma Upset Review of Systems Review of Systems: CONSTITUTIONAL: Denies fever, chills, or sweats. EYES: Denies visual changes, redness, or discharge. ENT: Denies rhinorrhea, congestion, sore throat, or otalgia. CARDIOVASCULAR: Denies chest pain, palpitations, or edema. RESPIRATORY: Denies cough or dyspnea. GASTROINTESTINAL: Reports abdominal pain, nausea, denies vomiting or diarrhea. GENITOURINARY: Denies dysuria or hematuria. SKIN: Denies rash or itching. MUSCULOSKELETAL: Denies back pain, joint pain, or myalgia. NEUROLOGIC: Denies headache, numbness, dizziness, or weakness. PSYCHIATRIC: Denies anxiety or depression. 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 Anxiety Bilateral breast cancer (03/2019) Invasive ductal carcinoma status post bilateral lumpectomy with positive lymph node. Patient refused mastectomy and chemotherapy but was amenable to radiation therapy however PET in October 2019 showed possible cervical cancer and she elected to forego further cancer directed treatment. 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 Brain metastases (02/2017) Non-small cell cancer of the lung metastatic to the right occipital lobe, status post resection in February 2017 and stereotactic radiation in April 2017. COVID-19 (01/2020) Depression Headache Non-small cell cancer of right lung (05/2016) Right Pancoast tumor discovered in May 2016 status post neoadjuvant chemoradiotherapy (chemo discontinued early due to toxicity) and right upper lobe lobectomy in September 2016 with additional adjuvant radiation in October 2016. Found to have metastatic disease to the brain in February 2017 status post resection and stereotactic radiation completed in April 2017. Thereafter received stereotactic radiation to a solitary FDG-avid right lower lobe pulmonary nodule in April and May 2018. Seizure disorder Tobacco abuse Surgical History Surgical History (Updated 02/04/21 @ 14:05 by Saranya Stephenson PA-C) History of brain surgery (02/2017) Resection metastatic tumor in the occipital lobe. History of dilation and curettage History of lobectomy of
--- NOTE | 2021-02-04 12:36 | PC.NURSE ---
contacted dietary at 1236 for pt roomtray
--- NOTE | 2021-02-04 13:30 | PM.IMHP ---
H&P: HPI History of Present Illness Date/Time: 02/04/21 13:30 Chief Complaint: Abdominal pain and nausea. Narrative: This is a very pleasant yet unfortunate 60-year-old female with history of lung, breast, and cervical cancer with history of brain and bony metastatic disease who presented to the emergency department earlier today with complaints of abdominal pain and nausea. For the past 2 to 3 weeks she has had intermittent epigastric pain that she describes as heaviness which occurs after eating however she will have occasional stabbing pain radiating to the right upper quadrant and to the right lower lateral ribs. She also reports increase in belching and bloating and reports that the symptoms are similar to when she had peptic ulcers many years ago. Additionally she reports intermittent nausea and vomiting. She was prescribed omeprazole pretty recently which seems to help somewhat. She reports chills but denies fever and sweats. No hematemesis, melena, or hematochezia. She does not take NSAIDs. She has no known history of gallbladder disease. No sick contacts. Review of Systems Review of Systems: Twelve systems were reviewed. She has loss of left peripheral vision after her brain tumor was resected. No vertigo. She denies sinus congestion, rhinorrhea, otalgia, and odynophagia. Occasional mild dysphagia but that is rare. She has been noticing lumps and bumps popping up, especially in the neck and axillary regions. They are not painful and she has never had anything like that before. She denies pruritus. No cough or shortness of breath. She has not had chest pain or pleuritic pain. No dysuria. No bone pain. Except as documented, all other systems were reviewed and are negative. 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 Anxiety Bilateral breast cancer (03/2019) Invasive ductal carcinoma status post bilateral lumpectomy with positive lymph node. Patient refused mastectomy and chemotherapy but was amenable to radiation therapy however PET in October 2019 showed possible cervical cancer and she elected to forego further cancer directed treatment. 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 Brain metastases (02/2017) Non-small cell cancer of the lung metastatic to the right occipital lobe, status post resection in February 2017 and stereotactic radiation in April 2017. COVID-19 (01/2020) Depression Headache Non-small cell cancer of right lung (05/2016) Right Pancoast tumor discovered in May 2016 status post neoadjuvant chemoradiotherapy (chemo discontinued early due to toxicity) and right upper lobe lobectomy in September 2016 with additional adjuvant radiation in October 2016. Found to have metastatic disease to the brain in February 2017 status post resection and stereotactic radiation completed in April 2017. Thereafter received stereotactic radiation to a solitary FDG-avid right lower lobe pulmonary nodule in April and May 2018. Seizure disorder Tobacco abuse Surgical History Surgical History History of brain surgery (02/2017) Resection metastatic tumor in the occipital lobe. History of dilation and curettage History of lobectomy of lung (09/2016) Right upper lobe lobectomy. History of lumpectomy of both breasts (08/24/19) For invasive ductal cell carcinoma. Family History Family History Sibling Colon cancer Cerebrovascular accident Sibling Stomach cancer Mother Leukemia Diabetes mellitus Father Dementia Leukemia Social History Social History Social History: Surrogate decision maker: S
[2021-02-04] MEDS: HYDROcodone/acetaminophen (*CRX) 10-325 MG TABLET 1 TAB PO (13:38)
--- NOTE | 2021-02-04 14:26 | ADMGEN ---
This patient, Noelle Curiel, was admitted to [facility] Surg Room 328-01. Patient/family oriented to hospital policies and general routines including ID bracelet, bed and alarms, visiting hours, pain management, procedures, bathroom and other care routines, personal items, smoking policy, room service/diet, and visiting hours. PT HAD ONE EPISODE OF VOMITING SHORTLY AFTER ARRIVING. SHE BELIEVES IT IS RELATED TO PAIN PILL GIVEN IN ED. Information on how to activate the Rapid Response Team has been discussed. Patient/Family are encouraged to report perceived risks to care and to ask questions if they do not understand what they are told or what they should do.
[2021-02-04 17:13] LABS: Immature Reticulocyte Fraction 39.8 % (3.0-15.9); Reticulocyte Hemoglobin Conten 30.8 pg (28.2-35.7); Reticulocyte Percent 4.31 % (0.7-4.3); Reticulocytes Absolute 0.12 B/L (32.2-175.7)
[2021-02-04 17:16] LABS: Lactate Dehydrogenase 652 U/L (313-618)
[2021-02-04 17:23] LABS: Transferrin 197 mg/dL (206-381)
[2021-02-04] MEDS: SUCRALFATE SUSP 100 MG/ML 10 ML UDC 1000 MG PO ×2 (17:43→19:55)
[2021-02-04 18:00] LABS: Iron 112 ug/dL (37-170)
[2021-02-04 18:09] LABS: Percent Iron Saturation 39 % (20-50)
[2021-02-04 18:52] LABS: Folic Acid 4.3 ng/mL (2.76->20); Vitamin B12 > 1000.0 pg/mL (239-931)
[2021-02-04] MEDS: HYDROcodone/acetaminophen (*CRX) 5-325 MG TABLET 1 TAB PO (19:52)
[2021-02-04] MEDS: PANTOPRAZOLE SODIUM IV 40 MG VIAL IV PUSH (19:55)
[2021-02-05] VITALS (9 sets, daily range): BP systolic 87–118; BP diastolic 37–60; PULSE 82–92; RESP 15–21; TEMP 36.2–36.6; O2SAT 94–100
[2021-02-05] MEDS: PROMETHAZINE HCL 25 MG TABLET PO ×2 (00:17→13:33)
[2021-02-05] MEDS: SUCRALFATE SUSP 100 MG/ML 10 ML UDC 1000 MG PO ×4 (06:22→21:08)
--- NOTE | 2021-02-05 07:29 | WPDGICN ---
Assessment and Plan Assessment and plan (1) Abdominal pain: Code(s): R10.9 - Unspecified abdominal pain Status: Acute Assessment and Plan: her pain is suggestive of peptic ulcer disease. It may at times be worse after eating. I will schedule her for an EGD to be done later today (2) Metastatic cancer: Qualifiers: Area of secondary neoplastic involvement: unspecified site Qualified Code(s): C79.9 - Secondary malignant neoplasm of unspecified site Code(s): C79.9 - Secondary malignant neoplasm of unspecified site Status: Acute Assessment and Plan: as noted, she has a history of having had lung cancer with a Pancoast tumor diagnosed a few years ago this was treated with some chemotherapy. She has had a lobectomy. She had breast cancer for which she declined chemotherapy but did have radiation. She has had brain metastases for which she had a resection. She now has metastatic disease to her bones and liver (3) Anemia: Code(s): D64.9 - Anemia, unspecified Status: Acute Assessment and Plan: part of this may be secondary to osseous metastases. Gastrointestinal blood loss is a likely contributor as well (4) Weight loss: Code(s): R63.4 - Abnormal weight loss Status: Acute Assessment and Plan: this is not surprising given her extensive malignancies and metastases. Endoscopy will be performed to rule out upper gastrointestinal pathology GI Consult Note Consult date/time: 02/05/21 07:29 HPI: Noelle Curiel is a 60 year old female who unfortunately has had multiple malignancies in the past few years. She had lung cancer breast and cervical cancer with metastases to the brain which required surgery and also she has diffuse bony metastases. At this time she comes in with epigastric pain that began a few weeks ago. She has had a poor appetite and has lost at least 60 lb over the past year. Her pain is a heaviness that occasionally is a stabbing discomfort in the upper abdomen towards the right. She denies having black or tarry stools or seen blood in her stools. She has nausea and occasional vomiting but not hematemesis. She has had a significant drop in her blood counts. Hemoglobin was 11.4 in June. It is now 7.9. She admits to feeling weaker and occasionally a bit lightheaded but has had not been vomiting. She is under the care of Dr. Jennings and also sees a physician for radiation. She states that many years ago she was treated for ulcers but does not know how they were diagnosed. She does not believe that she has ever had endoscopy or colonoscopy. She admits to occasional heartburn but denies dysphagia. She has no history of hepatitis or yellow jaundice or of pancreatitis. 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 Anxiety Bilateral breast cancer (03/2019) Invasive ductal carcinoma status post bilateral lumpectomy with positive lymph node. Patient refused mastectomy and chemotherapy but was amenable to radiation therapy however PET in October 2019 showed possible cervical cancer and she elected to forego further cancer directed treatment. 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 Brain metastases (02/2017) Non-small cell cancer of the lung metastatic to the right occipital lobe, status post resection in February 2017 and stereotactic radiation in April 2017. COVID-19 (01/2020) Depression Headache Non-small cell cancer of right lung (05/2016) Right Pancoast tumor
[2021-02-05 07:47] LABS: Free T4 Free Thyroxine Reflex 0.88 ng/dL (0.78-2.19)
[2021-02-05 08:33] LABS: Total Triiodothyronine (T3) 1.25 NG/ML (0.97-1.69)
[2021-02-05] MEDS: HYDROcodone/acetaminophen (*CRX) 5-325 MG TABLET 1 TAB PO ×2 (09:05→15:02)
[2021-02-05] MEDS: PANTOPRAZOLE SODIUM IV 40 MG VIAL IV PUSH ×2 (09:05→21:12)
--- NOTE | 2021-02-05 10:10 | PC.NURSE ---
to GI lab at 1010 per stretcher
[2021-02-05] MEDS: LACTATED RINGERS 1,000 ML 150 ML IV CONT (10:25)
--- NOTE | 2021-02-05 11:55 | WPDANESEPPF ---
Anes - Initial Pre Proc Eval Procedure: Operation Date: 02/05/21 13:15 Proposed Procedures p Esophagogastroduodenoscopy - Lavelle Gorman MD Date/Time: 02/05/21 11:55 Surgeon: Speedy Arreola MD Pre Op Diagnosis: Pleural effusions and anemia w metastatic lung ca Patient Data Age: 60 Gender: F Height: 1.7 m Weight: 94.1 kg Last Vital Signs Temp 98 F 02/05/21 10:26 Pulse 82 02/05/21 10:26 Resp 20 02/05/21 10:26 BP 104/38 L 02/05/21 10:26 Pulse Ox 96 02/05/21 10:26 Allergies Allergy/AdvReac Type Severity Reaction Status Date / Time ciprofloxacin Allergy Unknown RASH, EARS Verified 02/05/21 10:19 RINGING cefaclor [From Ceclor] Allergy Muscle Verified 02/05/21 10:19 Spasms iohexol Allergy Unknown Verified 02/05/21 10:19 [From contrast - CT, X-RAY] aspirin AdvReac Unknown GI UPSET Verified 02/05/21 10:19 AND PAIN gadobenic acid AdvReac Vomiting Verified 02/05/21 10:19 [From contrast - MRI] ketorolac [From Toradol] AdvReac Anxiety Verified 02/05/21 10:19 NSAIDS (Non-Steroidal AdvReac Gastrointestinal Verified 02/05/21 10:19 Anti-Inflamma Upset Home Medications Medication Instructions Recorded Confirmed Type multivitamin 1 tablet PO DAILY 09/14/19 02/04/21 History polyethylene glycol 3350 [Miralax] 17 g PO DAILY #14 ea 06/27/20 02/04/21 Rx promethazine 25 mg PO Q6H PRN #14 tablet 06/27/20 02/04/21 Rx hydrocodone-acetaminophen 1 tablet PO Q6H PRN #10 tablet 11/29/20 02/04/21 Rx Laboratory Tests 02/04/21 02/04/21 02/04/21 16:45 16:45 16:45 Absolute Retic 0.12 B/L L B/L (32.2-175.7) Percent Retic 4.31 % H % (0.7-4.3) Immature Retic Fraction 39.8 % H % (3.0-15.9) Retic Hgb Content 30.8 pg pg (28.2-35.7) Iron 112 ug/dL ug/dL (37-170) TIBC 286 ug/dL ug/dL (261-462) % Saturation 39 % % (20-50) Transferrin 197 mg/dL L mg/dL (206-381) Ferritin 536.00 ng/mL H ng/mL (11.1-264) Lactate Dehydrogenase 652 U/L H U/L (313-618) Vitamin B12 > 1000.0 pg/mL H pg/mL (239-931) Folate 4.3 ng/mL ng/mL (2.76->20) TSH (Reflex) 6.040 uIU/mL H uIU/mL (0.465-4.68) Free T4 Total T3 02/04/21 02/04/21 16:45 16:45 Absolute Retic Percent Retic Immature Retic Fraction Retic Hgb Content Iron TIBC % Saturation Transferrin Ferritin Lactate Dehydrogenase Vitamin B12 Folate TSH (Reflex) Free T4 0.88 ng/dL ng/dL (0.78-2.19) Total T3 1.25 NG/ML NG/ML (0.97-1.69) Patient hx anesthesia problems: none Family hx anesthesia problems: none Results Review: All pre-operative results and documents have been reviewed as part of the pre-operative evaluation. 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 Anxiety Bilateral breast cancer (03/2019) Invasive ductal carcinoma status post bilateral lumpectomy with positive lymph node. Patient refused mastectomy and chemotherapy but was amenable to radiation therapy however PET in October 2019 showed possible cervical cancer and she elected to forego further cancer directed treatment. 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 Brain metastases (02/2017) Non-small cell cancer of the lung metastatic to the right occipital lobe, status post resection in February 2017 and stereotactic radiation in April 2017. COVID-19 (01/2020) Depression Headache Non-small cell cancer of right lung (05/2016) Right Pancoast tumor discovered in May 2016 status post neoadjuvant chemoradiotherapy (chemo disco
[2021-02-05] MEDS: MULTIVITAMINS THERAPEUTIC TAB (*BKC) 1 TABLET PO (13:29)
[2021-02-05] MEDS: polyethylene glycoL 3350 17 GM POWD.PACK PO (13:29)
--- NOTE | 2021-02-05 15:12 | PC.NURSE ---
On 02/05/21, the student, [ Jennifer Cali], provided care and completed [facility] documentation on this patient. I have reviewed the student's documentation and agree with the findings.
--- NOTE | 2021-02-05 18:55 | PM.IMPN ---
Progress Note: A&P Assessment and Plan (1) Weight loss: Code(s): R63.4 - Abnormal weight loss Status: Acute (2) Anemia: Code(s): D64.9 - Anemia, unspecified Status: Acute (3) Abdominal pain: Code(s): R10.9 - Unspecified abdominal pain Status: Acute (4) Pleural effusion: Code(s): J90 - Pleural effusion, not elsewhere classified Status: Acute (5) Metastatic cancer: Qualifiers: Area of secondary neoplastic involvement: unspecified site Qualified Code(s): C79.9 - Secondary malignant neoplasm of unspecified site Code(s): C79.9 - Secondary malignant neoplasm of unspecified site Status: Acute (6) Thrombocytopenia: Code(s): D69.6 - Thrombocytopenia, unspecified Status: Acute (7) Rib fracture: Code(s): S22.39XA - Fracture of one rib, unspecified side, initial encounter for closed fracture Status: Acute (8) Normocytic anemia: Code(s): D64.9 - Anemia, unspecified Status: Acute Additional Plan 02/04/21 Presents today for evaluation of abdominal pain, nausea, and vomiting over the past couple of weeks. Her symptoms are similar to when she had peptic ulcers in the past. She has been started on pantoprazole as well as Carafate. After discussions with the patient, we thought it would be best to consult GI as well. Gallbladder dysfunction is also a possibility. CT of the abdomen and pelvis did not show any acute findings however did show extensive widespread osseous metastases as well as new small pleural effusions which may very well be malignant as well as a pathologic rib fracture and an enlarging pleural-based right lower lobe mass. Dr. Jennings has also been consulted and his input is appreciated. Patient has worsening anemia with thrombocytopenia, possibly due to underlying cancer and bony mets. Her home medications will be reviewed and resumed as appropriate. Analgesics and antiemetics available as needed. 02/05/21 pt seen by GI and suspected PUD as cause of abd pain pt underwent EGD today -> NERD, duodenal ulcers and nodules oncology consult pending POC to be reassessed after oncology input given pts extensive metastatic disease Subjective Date/time seen: 02/05/21 18:55 Patient reports that she has pain but is to about buddhism and knows that she will survive this. Exam Narrative: GEN: NAD, AAOx3 cooperative HEENT: NCAT, MMM, EOMI Neck: no JVD Heart: S1S2 RRR Lungs: CTA B/l Abd: soft, TTP in epigastric area palpable mass, ND, bowel sounds normoactive Ext: moves all, no cyanosis, no clubbing, no edema Neuro: Cranial nerves intact alert oriented x3 no focal neurological deficits appreciated Psych: Mood and affect congruent Objective Data Vital Signs Vital Signs: Vital Signs - 24 hr 02/04/21 20:00 02/04/21 20:43 02/04/21 22:00 Temperature 97 F L Pulse Rate 81 98 81 Respiratory Rate 18 18 18 Blood Pressure 113/50 L Pulse Oximetry 95 98 95 02/05/21 06:00 02/05/21 10:26 02/05/21 12:24 Temperature 97.2 F L 98 F Pulse Rate 92 82 88 Respiratory Rate 16 20 21 H Blood Pressure 115/60 104/38 L 87/37 L Pulse Oximetry 94 96 100 02/05/21 12:34 02/05/21 12:44 02/05/21 12:54 Temperature Pulse Rate 85 85 85 Respiratory Rate 17 19 15 Blood Pressure 114/56 L 95/38 L 117/55 L Pulse Oximetry 96 97 98 02/05/21 14:05 Temperature 97.5 F L Pulse Rate 83 Respiratory Rate 18 Blood Pressure 118/57 L Pulse Oximetry 94 Intake/Output Intake/Output: Intake & Output 02/02/21 02/03/21 02/04/21 02/05/21 23:59 23:59 23:59 23:59 Intake Total 465 670 Output Total 600 Balance 465 70 Meds/Results Medications: Active Medications Generic Name Dose Route Start Last Admin Trade Name Freq PRN Reason Stop Dose Admin Acetaminophen 650 mg 02/04/21 16:43 Acetaminophen 325 Mg Tablet PO Q6H PRN Mild Pain (1-3) or Fever Hydrocodone Bitart/Acetaminophen 1 tab 02/04/21
[2021-02-06 06:00] VITALS: BP 117/37; PULSE 68; RESP 18; TEMP 37.2; O2SAT 94
[2021-02-06] MEDS: SUCRALFATE SUSP 100 MG/ML 10 ML UDC 1000 MG PO ×4 (06:15→20:19)
[2021-02-06 06:27] LABS: Basophils Percent Auto 0.7 % (0.2-1.2); Eosinophils Percent Auto 0.4 % (0-4.4); Hematocrit 26.5 % (37.0-47.0); Hemoglobin 7.6 g/dL (12.0-15.0); Immature Granulocyte Absolute 0.06 K/mm3 (0.00-0.031); Immature Granulocyte Percent A 1.1 % (0-0.5); Immature Platelet Fraction Pct 8.2 % (0.9-11.2); Lymphocytes Absolute Auto 1.11 K/mm3 (0.9-3.2); Lymphocytes Percent Auto 19.6 % (18.3-44.2); Mean Corpuscular HGB Conc 28.7 g/dl (32-36); Mean Corpuscular Volume 97.8 fl (80-100); Monocytes Absolute Auto 0.4 K/mm3 (0.1-0.6); Monocytes Percent Auto 7.4 % (2.6-8.5); Neutrophils Percent Auto 70.8 % (45.5-73.1); Nucleated Red Blood Cells Absolute Auto 0.2 K/mm3 (0.0-0.012); Nucleated Red Blood Cells Perc 3.4 % (0.0-0.2); Platelet Count Result 47 k/mm3 (150-375); Red Blood Count 2.71 M/mm3 (4.2-5.4); Red Cell Distribution Width 22.7 % (11.5-14.5); White Blood Count 5.7 K/mm3 (4.5-10.0)
[2021-02-06 06:53] LABS: Alanine Aminotransferase 19 U/L (4-35); Albumin Level 3.6 g/dL (3.5-5.1); Alkaline Phosphatase 165 U/L (38-126); Anion Gap 6 mmol/L (8-16); Aspartate Amino Transferase 64 U/L (14-36); Bilirubin,Total 0.4 mg/dL (0.2-1.3); Blood Urea Nitrogen 11 mg/dL (7-17); Calcium 8.8 mg/dL (8.4-10.2); Carbon Dioxide 25 mmol/L (22-30); Chloride 110 mmol/L (98-107); Estimated CRCL calculation 48 ml/min; Estimated Glomerular Filt Rate 50; Glucose 97 mg/dL (65-110); Magnesium 2.1 mg/dL (1.6-2.3); Potassium 3.9 mmol/L (3.4-5.0); Sodium 141 mmol/L (137-145)
[2021-02-06 07:21] LABS: Platelet Estimate Decreased (Adequate)
[2021-02-06 07:22] LABS: Anisocytosis 2+ (NORMAL); Hypochromasia 2+ (NORMAL); Poikilocytosis 1+ (NORMAL); Target Cells 1+ (NORMAL)
[2021-02-06] MEDS: MULTIVITAMINS THERAPEUTIC TAB (*BKC) 1 TABLET PO (08:18)
[2021-02-06] MEDS: polyethylene glycoL 3350 17 GM POWD.PACK PO (08:18)
[2021-02-06] MEDS: PANTOPRAZOLE SODIUM IV 40 MG VIAL IV PUSH ×2 (08:19→20:23)
[2021-02-06] MEDS: HYDROcodone/acetaminophen (*CRX) 5-325 MG TABLET 1 TAB PO (10:58)
[2021-02-06 11:31] VITALS: BMI 32.5
--- NOTE | 2021-02-06 13:15 | P.PNAN_ITS ---
Anes - Prog Note Post-Op Date/Time: 02/06/21 13:15 Cardiovascular status: normal Respiratory status: normal Airway patency: baseline Mental status: baseline Post-Op hydration status: normal Vital Signs: Last Vital Signs Temp 37.2 C 02/06/21 06:00 Pulse 68 02/06/21 06:00 Resp 18 02/06/21 06:00 BP 117/37 L 02/06/21 06:00 Pulse Ox 94 02/06/21 06:00 Pain Score (VAS): 0 I/O: Intake & Output 02/05/21 02/06/21 02/06/21 23:59 07:59 15:59 Intake Total 1440 300 240 Output Total 650 Balance 790 300 240 Laboratory Tests 02/06/21 06:02 02/06/21 06:02 02/06/21 02/06/21 06:02 06:02 WBC 5.7 RBC 2.71 L Hgb 7.6 L Hct 26.5 L MCV 97.8 MCH 28.0 MCHC 28.7 L RDW 22.7 H Plt Count 47 L MPV TNP Immature Gran % (Auto) 1.1 H Neut % (Auto) 70.8 Lymph % (Auto) 19.6 [place] % (Auto) 7.4 Eos % (Auto) 0.4 Baso % (Auto) 0.7 Lymph # (Auto) 1.11 [place] # (Auto) 0.4 Eos # (Auto) 0.0 Baso # (Auto) 0.0 Abs Immat Gran (auto) 0.06 H Absolute Neuts (auto) 4.0 Absolute Nucleated RBC 0.2 H Nucleated RBC % 3.4 H Platelet Estimate Decreased % Immature Plt Fraction 8.2 Hypochromasia 2+ Poikilocytosis 1+ Anisocytosis 2+ Target Cells 1+ Sodium 141 Potassium 3.9 Chloride 110 H Carbon Dioxide 25 Anion Gap 6 L BUN 11 Creatinine 1.30 H Estim Creat Clear Calc 48 Estimated GFR 50 L Glucose 97 Calcium 8.8 Magnesium 2.1 Total Bilirubin 0.4 AST 64 H ALT 19 Alkaline Phosphatase 165 H Total Protein 6.0 L Albumin 3.6 Post-procedural complaints: none Patient Feedback: Patient satisfied with anesthetic care.
--- NOTE | 2021-02-06 14:00 | WPDGIPROGNO ---
Progress Note: A&P Assessment and Plan (1) Abdominal pain: Code(s): R10.9 - Unspecified abdominal pain Status: Acute Assessment and Plan: 02/05 her pain is suggestive of peptic ulcer disease. It may at times be worse after eating. I will schedule her for an EGD to be done later today 02/06 I explained to her that she does have an ulcer in the medication should relieve her symptoms within a couple of weeks. Also, H pylori was negative, so I reassured her that she does not need antibiotics at this time (2) Metastatic cancer: Qualifiers: Area of secondary neoplastic involvement: unspecified site Qualified Code(s): C79.9 - Secondary malignant neoplasm of unspecified site Code(s): C79.9 - Secondary malignant neoplasm of unspecified site Status: Acute Assessment and Plan: as noted, she has a history of having had lung cancer with a Pancoast tumor diagnosed a few years ago this was treated with some chemotherapy. She has had a lobectomy. She had breast cancer for which she declined chemotherapy but did have radiation. She has had brain metastases for which she had a resection. She now has metastatic disease to her bones and liver (3) Anemia: Code(s): D64.9 - Anemia, unspecified Status: Acute Assessment and Plan: part of this may be secondary to osseous metastases. Gastrointestinal blood loss is a likely contributor as well She said that she did see Dr. Jennings yesterday she will be following up with him in the office (4) Weight loss: Code(s): R63.4 - Abnormal weight loss Status: Acute Assessment and Plan: this is not surprising given her extensive malignancies and metastases. Endoscopy will be performed to rule out upper gastrointestinal pathology Subjective Date/time seen: 02/06/21 14:00 she states that she still has epigastric pain. She was inquiring whether she should have antibiotics for her stomach. She mentioned that once before her doctor gave her antibiotics for her ulcer. I told her that the specimen for H pylori was negative and that consequently antibiotics are not needed. Explain that the combination of sucralfate and pantoprazole should have her ulcer healed within a matter of weeks, as it was superficial. We briefly discussed colonoscopy. I told her that that would be the next step for evaluating anemia. She was not interested in that and states that she was told she could go home tomorrow morning, and will follow up with Dr. Jennings Review of Systems Review of Systems: All systems reviewed & are unremarkable except as noted in HPI and below Exam Const: General: cooperative and no acute distress Nutritional Appearance: average body habitus Orientation/consciousness: patient oriented x3 Resp: Auscultation: clear to auscultation bilaterally GI: GI Palp: Yes abdominal tenderness ( epigastric area) and No Guarding due to palpation present (GI) Auscultation: normal bowel sounds Skin: General skin exam: no jaundice Neuro: General: patient oriented x3 Objective Data Vital Signs Vital Signs: Vital Signs - 24 hr 02/05/21 14:05 02/05/21 20:00 02/05/21 22:00 Temperature 36.4 C L 36.3 C L Pulse Rate 83 88 Respiratory Rate 18 18 Blood Pressure 118/57 L 109/46 L Pulse Oximetry 94 94 94 02/06/21 06:00 Temperature 37.2 C Pulse Rate 68 Respiratory Rate 18 Blood Pressure 117/37 L Pulse Oximetry 94 Intake/Output Intake/Output: Intake & Output 02/03/21 02/04/21 02/05/21 02/06/21 23:59 23:59 23:59 23:59 Intake Total 465 2110 540 Output Total 1250 Balance 465 860 540 Meds/Results Medications: Active Medications Generic Name Dose Route Start Last Admin Trade Name Freq PRN Reason Stop Dose Admin Acetaminophen 650 mg 02/04/21 16:43 Acetaminophen 325 Mg Tablet PO Q6H PRN Mild Pain (1-3) or Fever Hydrocodone Bitart/Acetaminophen 1 tab 02/04/21 21:59 02/06/21 10:
[2021-02-06 14:06] LABS: Immunochemical Fecal Occult Bl Negative (N)
[2021-02-06 14:07] LABS: IFOB Positive Control Positive
[2021-02-06 15:45] VITALS: BP 119/56; PULSE 94; RESP 12; TEMP 37.1; O2SAT 98
--- NOTE | 2021-02-06 17:37 | PDONCCN ---
HPI - Date of Consult Date/Time: 02/06/21 17:37 Requesting Physician: Speedy Arreola MD Primary Care Provider: Epi Prescott MD - Consult Narrative Reason for consult: Metastatic non-small cell lung cancer Narrative: Noelle Curiel is a 60 year old female with history of metastatic non-small cell lung cancer initially diagnosed in September 2016 status post radiation therapy treatment with subsequent brain metastasis development. She had stereotactic radio surgery done in April 2017. Patient then had another relapse and had SBRT done on 2018. She was diagnosed with bilateral breast cancer in 2018 had had bilateral lumpectomy done without radiation and chemotherapy. She was more recently diagnosed with stage IIB exocervical carcinoma status post radiation therapy completed in October of 2020. Patient now came into the hospital with abdominal pain and nausea. She denies any melena and hematochezia. She has been having these symptoms will last 2-3 weeks duration. She denies any significant weight loss. CT abdomen showed enlarging pleural based right lower lobe mass consistent with metastatic disease with rib fracture and new small pleural effusion with extensive widespread bone metastasis. Patient had EGD done that showed single linear ulcer in the duodenal bulb and single nodule present in the 2nd part of the duodenum and biopsies were taken. Labs showed hemoglobin [place] 7.6 [place] [address]. Stool testing was negative for bleeding. She is complaining of tiredness and fatigue. Review of Systems - Review of Systems All systems reviewed & are unremarkable except as noted in [facility] and [facility] Medical History: Medical History (Last Reviewed 02/05/21 @ 07:33 by Lavelle Gorman MD) Adenosquamous carcinoma of cervix Onset Date: ~05/2020 FIGO stage IIb grade 3 status post LEEP and pelvic external beam radiation, completed 09/21/2020. Anxiety Bilateral breast cancer Onset Date: 03/2019 Invasive ductal carcinoma status post bilateral lumpectomy with positive lymph node. Patient refused mastectomy and chemotherapy but was amenable to radiation therapy however PET in October 2019 showed possible cervical cancer and she elected to forego further cancer directed treatment. 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 Brain metastases Onset Date: 02/2017 Non-small cell cancer of the lung metastatic to the right occipital lobe, status post resection in February 2017 and stereotactic radiation in April 2017. COVID-19 Onset Date: 01/2020 Depression Headache Non-small cell cancer of right lung Onset Date: 05/2016 Right Pancoast tumor discovered in May 2016 status post neoadjuvant chemoradiotherapy (chemo discontinued early due to toxicity) and right upper lobe lobectomy in September 2016 with additional adjuvant radiation in October 2016. Found to have metastatic disease to the brain in February 2017 status post resection and stereotactic radiation completed in April 2017. Thereafter received stereotactic radiation to a solitary FDG-avid right lower lobe pulmonary nodule in April and May 2018. Seizure disorder Tobacco abuse Surgical History: Surgical History (Last Reviewed 02/05/21 @ 07:33 by Lavelle Gorman MD) History of brain surgery Onset Date: 02/2017 Resection metastatic tumor in the occipital lobe. History of dilation and curettage History of lobectomy of lung Onset Date: 09/2016 Right upper lobe lobectomy. History of lumpectomy of both breasts Onset Date: 08/24/19 For invasive ductal cell carcinoma. Family History: Family History (Last Reviewed 02/05/21 @ 07:33 by Lavelle Gorman MD) Sibling Colon cancer Cerebrovascular accident Sibling Stomach cancer Mother Leukemia Diabetes mellitus Father Dementia Leukemia - Social History Social History: Social History (Last Reviewed 02/05/21 @ 07:33 by Lavelle Gorman MD) Al
--- NOTE | 2021-02-06 20:58 | PM.IMPN ---
Progress Note: A&P Assessment and Plan (1) Weight loss: Code(s): R63.4 - Abnormal weight loss Status: Acute (2) Anemia: Code(s): D64.9 - Anemia, unspecified Status: Acute (3) Abdominal pain: Code(s): R10.9 - Unspecified abdominal pain Status: Acute (4) Pleural effusion: Code(s): J90 - Pleural effusion, not elsewhere classified Status: Acute (5) Metastatic cancer: Qualifiers: Area of secondary neoplastic involvement: unspecified site Qualified Code(s): C79.9 - Secondary malignant neoplasm of unspecified site Code(s): C79.9 - Secondary malignant neoplasm of unspecified site Status: Acute (6) Thrombocytopenia: Code(s): D69.6 - Thrombocytopenia, unspecified Status: Acute (7) Rib fracture: Code(s): S22.39XA - Fracture of one rib, unspecified side, initial encounter for closed fracture Status: Acute (8) Normocytic anemia: Code(s): D64.9 - Anemia, unspecified Status: Acute Additional Plan 02/04/21 Presents today for evaluation of abdominal pain, nausea, and vomiting over the past couple of weeks. Her symptoms are similar to when she had peptic ulcers in the past. She has been started on pantoprazole as well as Carafate. After discussions with the patient, we thought it would be best to consult GI as well. Gallbladder dysfunction is also a possibility. CT of the abdomen and pelvis did not show any acute findings however did show extensive widespread osseous metastases as well as new small pleural effusions which may very well be malignant as well as a pathologic rib fracture and an enlarging pleural-based right lower lobe mass. Dr. Jennings has also been consulted and his input is appreciated. Patient has worsening anemia with thrombocytopenia, possibly due to underlying cancer and bony mets. Her home medications will be reviewed and resumed as appropriate. Analgesics and antiemetics available as needed. 02/05/21 pt seen by GI and suspected PUD as cause of abd pain pt underwent EGD today -> NERD, duodenal ulcers and nodules oncology consult pending POC to be reassessed after oncology input given pts extensive metastatic disease 02/06/21 Patient pending oncology eval -> has been seen offered chemotherapy patient is to follow up outpatient KAMRYN will give low dose IVFs overnight repeat BMP in am Still with significant pain needs improved pain control prior to discharge Anticipate discharge in 24-48 hours when pain is improved Subjective Date/time seen: 02/06/21 17:58 Patient doing okay complains of pain during my visit to her full awaiting visitation from Oncology. Patient states that she does not want undergo chemotherapy and has refused in the past. She is using fruits and vegetables to heal herself. Exam Narrative: GEN: NAD, AAOx3, cooperative HEENT: NCAT, MMM, EOMI Neck: no JVD Heart: S1S2 RRR Lungs: CTA B/l Ext: moves all, no cyanosis, no clubbing, no edema Neuro: Cranial nerves intact no focal neurological deficits Objective Data Vital Signs Vital Signs: Vital Signs - 24 hr 02/05/21 22:00 02/06/21 06:00 02/06/21 15:45 Temperature 97.3 F L 99.0 F 98.8 F Pulse Rate 88 68 94 Respiratory Rate 18 18 12 Blood Pressure 109/46 L 117/37 L 119/56 L Pulse Oximetry 94 94 98 Intake/Output Intake/Output: Intake & Output 02/03/21 02/04/21 02/05/21 02/06/21 23:59 23:59 23:59 23:59 Intake Total 465 2110 540 Output Total 1250 Balance 465 860 540 Meds/Results Medications: Active Medications Generic Name Dose Route Start Last Admin Trade Name Freq PRN Reason Stop Dose Admin Acetaminophen 650 mg 02/04/21 16:43 Acetaminophen 325 Mg Tablet PO Q6H PRN Mild Pain (1-3) or Fever Hydrocodone Bitart/Acetaminophen 1 tab 02/04/21 21:59 02/06/21 10:58 Hydrocodone/Acetaminophen (*Crx) 5-325 Mg Tablet PO 1 tab Q6H PRN Administration Pain Rated 4-10 Multivitamins
[2021-02-06 21:46] VITALS: BP 108/52; PULSE 95; RESP 18; TEMP 37.3; O2SAT 93
[2021-02-06] MEDS: SODIUM CHLORIDE 0.9% IV 1,000 ML 50 ML IV CONT (22:12)
[2021-02-07] MEDS: HYDROcodone/acetaminophen (*CRX) 5-325 MG TABLET 1 TAB PO ×2 (02:11→11:20)
[2021-02-07 05:34] VITALS: BP 169/90; PULSE 91; RESP 18; TEMP 37.1; O2SAT 92
[2021-02-07] MEDS: SUCRALFATE SUSP 100 MG/ML 10 ML UDC 1000 MG PO ×4 (06:28→20:33)
[2021-02-07 06:36] LABS: Basophils Percent Auto 0.7 % (0.2-1.2); Eosinophils Percent Auto 0.3 % (0-4.4); Hematocrit 26.5 % (37.0-47.0); Hemoglobin 7.7 g/dL (12.0-15.0); Immature Granulocyte Absolute 0.06 K/mm3 (0.00-0.031); Immature Platelet Fraction Pct 8.4 % (0.9-11.2); Lymphocytes Absolute Auto 1.25 K/mm3 (0.9-3.2); Lymphocytes Percent Auto 21.8 % (18.3-44.2); Mean Corpuscular HGB Conc 29.1 g/dl (32-36); Mean Corpuscular Hemoglobin 28.7 pg (26-34); Mean Corpuscular Volume 98.9 fl (80-100); Mean Platelet Volume 10.2 fl (7.4-10.4); Monocytes Absolute Auto 0.4 K/mm3 (0.1-0.6); Monocytes Percent Auto 6.3 % (2.6-8.5); Neutrophils Percent Auto 69.9 % (45.5-73.1); Nucleated Red Blood Cells Absolute Auto 0.2 K/mm3 (0.0-0.012); Nucleated Red Blood Cells Perc 3.1 % (0.0-0.2); Platelet Count Result 45 k/mm3 (150-375); Red Blood Count 2.68 M/mm3 (4.2-5.4); Red Cell Distribution Width 22.8 % (11.5-14.5); White Blood Count 5.7 K/mm3 (4.5-10.0)
[2021-02-07 06:44] LABS: Alanine Aminotransferase 18 U/L (4-35); Albumin Level 3.3 g/dL (3.5-5.1); Alkaline Phosphatase 161 U/L (38-126); Anion Gap 8 mmol/L (8-16); Aspartate Amino Transferase 60 U/L (14-36); Bilirubin,Total 0.5 mg/dL (0.2-1.3); Blood Urea Nitrogen 11 mg/dL (7-17); Calcium 8.9 mg/dL (8.4-10.2); Carbon Dioxide 24 mmol/L (22-30); Chloride 110 mmol/L (98-107); Estimated CRCL calculation 48 ml/min; Estimated Glomerular Filt Rate 50; Glucose 94 mg/dL (65-110); Magnesium 1.9 mg/dL (1.6-2.3); Potassium 3.9 mmol/L (3.4-5.0); Sodium 142 mmol/L (137-145)
[2021-02-07 08:00] VITALS: PULSE 91; RESP 18; O2SAT 92
[2021-02-07 08:04] LABS: Anisocytosis 1+ (NORMAL); Hypochromasia 1+ (NORMAL); Platelet Estimate Decreased (Adequate)
[2021-02-07] MEDS: polyethylene glycoL 3350 17 GM POWD.PACK PO (08:41)
[2021-02-07] MEDS: PANTOPRAZOLE SODIUM IV 40 MG VIAL IV PUSH (08:41)
[2021-02-07] MEDS: MULTIVITAMINS THERAPEUTIC TAB (*BKC) 1 TABLET PO (08:41)
--- NOTE | 2021-02-07 14:09 | PM.IMPN ---
Progress Note: A&P Assessment and Plan (1) Weight loss: Code(s): R63.4 - Abnormal weight loss Status: Acute (2) Anemia: Code(s): D64.9 - Anemia, unspecified Status: Acute (3) Abdominal pain: Code(s): R10.9 - Unspecified abdominal pain Status: Acute (4) Pleural effusion: Code(s): J90 - Pleural effusion, not elsewhere classified Status: Acute (5) Metastatic cancer: Qualifiers: Area of secondary neoplastic involvement: unspecified site Qualified Code(s): C79.9 - Secondary malignant neoplasm of unspecified site Code(s): C79.9 - Secondary malignant neoplasm of unspecified site Status: Acute (6) Thrombocytopenia: Code(s): D69.6 - Thrombocytopenia, unspecified Status: Acute (7) Rib fracture: Code(s): S22.39XA - Fracture of one rib, unspecified side, initial encounter for closed fracture Status: Acute (8) Normocytic anemia: Code(s): D64.9 - Anemia, unspecified Status: Acute Additional Plan 02/04/21 Presents today for evaluation of abdominal pain, nausea, and vomiting over the past couple of weeks. Her symptoms are similar to when she had peptic ulcers in the past. She has been started on pantoprazole as well as Carafate. After discussions with the patient, we thought it would be best to consult GI as well. Gallbladder dysfunction is also a possibility. CT of the abdomen and pelvis did not show any acute findings however did show extensive widespread osseous metastases as well as new small pleural effusions which may very well be malignant as well as a pathologic rib fracture and an enlarging pleural-based right lower lobe mass. Dr. Jennings has also been consulted and his input is appreciated. Patient has worsening anemia with thrombocytopenia, possibly due to underlying cancer and bony mets. Her home medications will be reviewed and resumed as appropriate. Analgesics and antiemetics available as needed. 02/05/21 pt seen by GI and suspected PUD as cause of abd pain pt underwent EGD today -> NERD, duodenal ulcers and nodules oncology consult pending POC to be reassessed after oncology input given pts extensive metastatic disease 02/06/21 Patient pending oncology eval -> has been seen offered chemotherapy patient is to follow up outpatient KAMRYN will give low dose IVFs overnight repeat BMP in am Still with significant pain needs improved pain control prior to discharge Anticipate discharge in 24-48 hours when pain is improved 02/07/21 She is still complaining of pain in the abdomen. She had nausea and 1 episode of vomitus today. Her hemoglobin and platelet count seems stable but low. Her creatinine is stable as well. She was seen by Oncology and wants her to follow as an outpatient. She will be offered chemotherapy if she is agreeable after PET-CT and bone marrow biopsy. She had refused chemotherapy and immunotherapy in the past. Continue pantoprazole and sucralfate. I will switch IV pantoprazole to p.o.. Zofran p.r.n. for nausea and vomiting. Pain control with [place] at current dose. DC home tomorrow if pain is adequately controlled. Subjective Date/time seen: 02/07/21 14:09 She is still complaining of abdominal pain. She was nauseous earlier and did have small amount of vomitus. Not have any blood in the vomitus. She did have a a bowel movement today. She denied have any melena or hematochezia. She denied have any fever chills shortness of breath or chest pain. Review of Systems Review of Systems: All systems reviewed & are unremarkable except as noted in HPI and below Exam Narrative: GEN: NAD, AAOx3, cooperative HEENT: NCAT, MMM, EOMI Neck: no JVD Heart: S1S2 RRR Lungs: CTA B/l Ext: moves all, no cyanosis, no clubbing, no edema Neuro: Cranial nerves intact no focal neurological deficits Objective Data Vital Signs Vital Signs: Vital Signs - 24 hr 02/06/21 15:45 02/06/21 21:46
[2021-02-07 15:49] VITALS: BP 100/51; PULSE 91; RESP 18; TEMP 36.9; O2SAT 94
[2021-02-07] MEDS: PANTOPRAZOLE 40 MG TABLET PO (20:33)
[2021-02-07 22:00] VITALS: BP 108/47; PULSE 92; RESP 16; TEMP 36.4; O2SAT 96
[2021-02-08] MEDS: HYDROcodone/acetaminophen (*CRX) 5-325 MG TABLET 1 TAB PO (01:25)
[2021-02-08] MEDS: SUCRALFATE SUSP 100 MG/ML 10 ML UDC 1000 MG PO (05:51)
[2021-02-08 06:00] VITALS: BP 110/50; PULSE 85; RESP 16; TEMP 36.4; O2SAT 97
[2021-02-08] MEDS: PANTOPRAZOLE 40 MG TABLET PO (08:17)
[2021-02-08] MEDS: MULTIVITAMINS THERAPEUTIC TAB (*BKC) 1 TABLET PO (08:17)
[2021-02-08] MEDS: polyethylene glycoL 3350 17 GM POWD.PACK PO (08:17)
--- NOTE | 2021-02-08 10:41 | PM.DS ---
DS: Admitting Diagnosis Discharge Date 02/08/21 Admitting Diagnosis Abdominal pain Metastatic carcinoma Thrombocytopenia Anemia DS: Discharge Diagnosis Discharge Diagnosis (1) Weight loss: Code(s): R63.4 - Abnormal weight loss Status: Acute Assessment and Plan: 02/04/21 Presents today for evaluation of abdominal pain, nausea, and vomiting over the past couple of weeks. Her symptoms are similar to when she had peptic ulcers in the past. She has been started on pantoprazole as well as Carafate. After discussions with the patient, we thought it would be best to consult GI as well. Gallbladder dysfunction is also a possibility. CT of the abdomen and pelvis did not show any acute findings however did show extensive widespread osseous metastases as well as new small pleural effusions which may very well be malignant as well as a pathologic rib fracture and an enlarging pleural-based right lower lobe mass. Dr. Jennings has also been consulted and his input is appreciated. Patient has worsening anemia with thrombocytopenia, possibly due to underlying cancer and bony mets. Her home medications will be reviewed and resumed as appropriate. Analgesics and antiemetics available as needed. 02/05/21 pt seen by GI and suspected PUD as cause of abd pain pt underwent EGD today -> GERD, duodenal ulcers and nodules oncology consult pending POC to be reassessed after oncology input given pts extensive metastatic disease 02/06/21 Patient pending oncology eval -> has been seen offered chemotherapy patient is to follow up outpatient KAMRYN will give low dose IVFs overnight repeat BMP in am Still with significant pain needs improved pain control prior to discharge Anticipate discharge in 24-48 hours when pain is improved 02/07/21 She is still complaining of pain in the abdomen. She had nausea and 1 episode of vomitus today. Her hemoglobin and platelet count seems stable but low. Her creatinine is stable as well. She was seen by Oncology and wants her to follow as an outpatient. She will be offered chemotherapy if she is agreeable after PET-CT and bone marrow biopsy. She had refused chemotherapy and immunotherapy in the past. Continue pantoprazole and sucralfate. I will switch IV pantoprazole to p.o.. Zofran p.r.n. for nausea and vomiting. Pain control with [place] at current dose. DC home tomorrow if pain is adequately controlled. 02/08/21: She is feeling better. Her pain is adequately controlled. She denied have any nausea and vomiting. She feels ready to go home. She will be discharged on pantoprazole and sucralfate for her duodenal ulcer. Her symptoms are improving. 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 As per oncology: Metastatic non-small cell lung cancer diagnosed in September 2016 is status post radiation therapy treatment with subsequent brain metastasis status post history of tactic radiosurgery in April 2017. She had local relapse in 2018 and had SBRT treatment done. She developed bilateral breast cancer in 2017 and had bilateral lumpectomy done. More recently she developed stage II B cervical adenosquamous carcinoma and completed radiation therapy in November 07. CT scan finding noted that showed diffuse bone metastasis and enlarging pleural based right lower lobe mass consistent with metastatic disease with for head rib fracture. EGD finding also noted. Patient has anemia and thrombocytopenia. This is likely secondary to bone marrow involvement with the malignancy. In the past patient was not interested in any any chemotherapy or immunotherapy treatment. I have informed her that her only treatment option will be systemic therapy in the form of chemotherapy/immunotherapy. She will make a decision and get back with me after the discharge. If she decides to proceed with treatment and will order PET scan and bone marrow biopsy prior to starting any
[2021-02-08] MEDS: ACETAMINOPHEN 325 MG TABLET 650 MG PO (11:22)
== END 2021-02-08 11:56 | disposition home or self-care (01) | DRG 384 ==
LOC: ANHED 09:44 → ANH3MEDSUR 13:23
PROVIDERS: Hospitalist; Internal Medicine Gastroenterology; Physician Assistant; Admitting Provider Internal Medicine; Emergency Provider Emergency Medicine; PCP Emergency Medicine; Visit Provider Internal Medicine Critical Care Medicine
PROC: 0DJ08ZZ Inspection of Upper Intestinal Tract, Via Natural or Artificial Opening Endoscopic (ICD-10-PCS; CPT 43235; principal; 2021-02-05 13:15)
DX: K26.9 Duodenal ulcer, unspecified as acute or chronic, without hemorrhage or perforation (principal); J90 Pleural effusion, not elsewhere classified; C34.91 Malignant neoplasm of unspecified part of right bronchus or lung; C79.51 Secondary malignant neoplasm of bone; C79.81 Secondary malignant neoplasm of breast; C79.82 Secondary malignant neoplasm of genital organs; D62 Acute posthemorrhagic anemia; M84.48XA Pathological fracture, other site, initial encounter for fracture; C79.52 Secondary malignant neoplasm of bone marrow; N17.9 Acute kidney failure, unspecified; K31.9 Disease of stomach and duodenum, unspecified; K21.9 Gastro-esophageal reflux disease without esophagitis; D69.59 Other secondary thrombocytopenia; R63.4 Abnormal weight loss; G40.909 Epilepsy, unspecified, not intractable, without status epilepticus; F41.9 Anxiety disorder, unspecified; D63.0 Anemia in neoplastic disease; Z87.11 Personal history of peptic ulcer disease; Z86.16 Personal history of COVID-19; Z87.891 Personal history of nicotine dependence
CPT/HCPCS: 36415; 74176; 80053; 81001; 82274; 82607; 82728; 82746; 83540; 83550; 83615; 83690; 83735; 84439; 84443; 84466; 84480; 85025; 85046; 85055; 87081; 88305; 96374; 96376; 99285; A9270; C9113; G0378; J2704; J7030; J7120

== ENCOUNTER 2021-02-17 19:49 | Inpatient (IN) | payer MEDICARE, MEDICAID, SELFPAY ==
--- NOTE | ~2021-02-17 | CT_ITS ---
EXAMINATION: CT chest abdomen pelvis wo con EXAM DATE: 02/17/2021 21:23 INDICATION: Abdominal pain with known bone mets TECHNIQUE: Spiral CT of the chest, abdomen and pelvis was performed without contrast. Axial, reyes l and sagittal images chest, abdomen and pelvis were reviewed. Coronal maximum intensity pixel image s of chest reviewed. The dose-length product (DLP) for this examination was 1026.71 mGy-cm. The exp osure was tailored according to patient size (auto mA exposure control), and iterative reconstruction (ASIR) was used as additional dose reduction technique. Comparison is made to prior examination from 02/04/2021, 06/27/2020. FINDINGS: CHEST: There is peripheral right basilar, lower lobe predominant opacity with differential diagnosis including round atelectasis, metastatic disease with overlying pathologic subacute fracture right 7t h rib laterally. There is diffuse extensive mixed osteoblastic osteolytic disease. There are small bi lateral pleural effusions. Surgical changes from right upper lobectomy. Tracheobronchial tree is pa tent. There is no mediastinal, hilar or axillary lymphadenopathy. There is no pneumothorax. Hea rt normal in size. No evidence of coronary arterial calcification. There is mild emphysema. ABDOMEN PELVIS: There is diffuse omental, mesenteric fat stranding, with faint nodularity, possible c arcinomatosis. There is trace ascites. Spleen measures 15 cm, mildly enlarged. Nonspecific generalize d body wall and mesenteric fat stranding. There are scattered subcentimeter liver hypodensities whic h are indeterminate for metastatic disease. Adrenal glands are unremarkable. Gallbladder is unremark able. No biliary obstruction. There is no nephrolithiasis or hydronephrosis. Fibroid uterus. The bladder is unremarkable. There is no retroperitoneal or pelvic lymphadenopathy. There is mild sca ttered arteriosclerotic disease. The appendix is normal. The stomach and small bowel are unremarkable. There is expected amount of c olonic stool. No free intraperitoneal gas. Extensive vertebral body mixed osteoblastic osteolytic disease. The thoracic and lumbar vertebral body heights are maintained. IMPRESSION: 1. Extensive mixed osteoblastic osteolytic disease. 2. Right lower lobe pleural-based opacity with overlying pathologic right 7th rib fracture, differen tial diagnosis including metastatic disease, round atelectasis. 3. Developing scattered indeterminate subcentimeter liver hypodensities, possible metastatic diseas e. 4. Trace ascites with omental nodularity, possible peritoneal carcinomatosis. 5. Mild splenomegaly. 6. Small bilateral pleural effusions. 7. Mild emphysema. Reviewed, dictated and finalized at location A. IMPRESSION: 1. Extensive mixed osteoblastic osteolytic disease. 2. Right lower lobe pleural-based opacity with overlying pathologic right 7th rib fracture, differential diagnosis including metastatic disease, round atelec tasis. 3. Developing scattered indeterminate subcentimeter liver hypodensities, poss ible metastatic disease. 4. Trace ascites with omental nodularity, possible peritoneal carcinomatosis. 5. Mild splenomegaly. 6. Small bilateral pleural effusions. 7. Mild emphysema.
[2021-02-17 19:41] VITALS: BP 119/59; PULSE 99; RESP 20; TEMP 36.6; O2SAT 96
--- NOTE | 2021-02-17 19:52 | PC.NURSE ---
POA to ED desk representative requesting to relay information to pt primary RN. POA does not want to go back due to one visitor policy. Pt has been in excruciating abd. pain and has only been treated with tylenol. Pt has cancer that has spread to bones/back/ribs. Pt vomited blood today. Pt prefers to not receive morphine at all, pt is currently a full code. POA requests to be called with changes in pt's status.
--- NOTE | 2021-02-17 20:44 | ED.ABDPAIN ---
HPI - Abdominal Pain General Chief Complaint: Abdominal Pain Stated Complaint: pain all over Source: patient and old records reviewed History of Present Illness HPI narrative: 60-year-old female with past medical history of lung, breast and cervical cancer with bony mets as well as brain mets in the past recently discharged from the hospital 1 week ago. Patient arrives complaining of 1 week of increasing pain decreasing appetite and vomiting clear amounts. Unable to tolerate foods or medications. Taking Tylenol for pain without relief. No fever, no coffee-ground emesis, no melena, no constipation. No diarrhea. Patient complains of abdominal pain all over with no improvement since discharge. Of note patient has not yet followed up with her oncologist since discharge. Pain worse with nothing improves with nothing. Sharp constant. Related Data Home Medications Medication Instructions Recorded Confirmed multivitamin 1 tablet PO DAILY 09/14/19 02/04/21 Allergies Allergy/AdvReac Type Severity Reaction Status Date / Time ciprofloxacin Allergy Unknown RASH, EARS Verified 02/05/21 10:19 RINGING cefaclor [From Ceclor] Allergy Muscle Verified 02/05/21 10:19 Spasms iohexol Allergy Unknown Verified 02/05/21 10:19 [From contrast - CT, X-RAY] aspirin AdvReac Unknown GI UPSET Verified 02/05/21 10:19 AND PAIN gadobenic acid AdvReac Vomiting Verified 02/05/21 10:19 [From contrast - MRI] ketorolac [From Toradol] AdvReac Anxiety Verified 02/05/21 10:19 NSAIDS (Non-Steroidal AdvReac Gastrointestinal Verified 02/05/21 10:19 Anti-Inflamma Upset Review of Systems Review of Systems: CONSTITUTIONAL: no fever, postiive for weight loss, no confusion EYES: no new vision changes, no eye pain ENT: no rhinorrhea, no sore throat, no difficulty swallowing CARDIOVASCULAR: no chest pain, no leg edema, no palpitations RESPIRATORY: no cough, no hemoptysis GASTROINTESTINAL: positive for abdominal pain, positive for nausea, no hematemesis no melena. GENITOURINARY: no flank pain, no dysuria, no hematuria SKIN: no rash, no jaundice NEUROLOGIC: No headache, no dizziness, no focal weakness PSYCHIATRIC: No hallucinations, no suicidal ideation PMFSH Past Medical History Medical History Adenosquamous carcinoma of cervix (~05/2020) FIGO stage IIb grade 3 status post LEEP and pelvic external beam radiation, completed 09/21/2020. Anxiety Bilateral breast cancer (03/2019) Invasive ductal carcinoma status post bilateral lumpectomy with positive lymph node. Patient refused mastectomy and chemotherapy but was amenable to radiation therapy however PET in October 2019 showed possible cervical cancer and she elected to forego further cancer directed treatment. 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 Brain metastases (02/2017) Non-small cell cancer of the lung metastatic to the right occipital lobe, status post resection in February 2017 and stereotactic radiation in April 2017. COVID-19 (01/2020) Depression Headache Non-small cell cancer of right lung (05/2016) Right Pancoast tumor discovered in May 2016 status post neoadjuvant chemoradiotherapy (chemo discontinued early due to toxicity) and right upper lobe lobectomy in September 2016 with additional adjuvant radiation in October 2016. Found to have metastatic disease to the brain in February 2017 status post resection and stereotactic radiation completed in April 2017. Thereafter received stereotactic radiation to a solitary FDG-avid right lower lobe pulmonary nodule in April and May 2018. Seizure disorder Tobacco abuse Surgical History Surgical History History of brain surgery (02/2017) Resection metastatic tumor in the occipital lobe. History of dilation and curettage History of lobectomy of lung (09/2016) R
[2021-02-17 21:06] LABS: Hematocrit 28.1 % (37.0-47.0); Hemoglobin 8.1 g/dL (12.0-15.0); Immature Platelet Fraction Pct 12.1 % (0.9-11.2); Mean Corpuscular HGB Conc 28.8 g/dl (32-36); Mean Corpuscular Hemoglobin 29.8 pg (26-34); Mean Corpuscular Volume 103.3 fl (80-100); Platelet Count Result 49 k/mm3 (150-375); Red Blood Count 2.72 M/mm3 (4.2-5.4); White Blood Count 6.7 K/mm3 (4.5-10.0)
[2021-02-17 21:10] LABS: Add Urine Microscopic? YES; Appearance Urine Cloudy (Clear); Bacteria Urine Trace /hpf; Bilirubin Urine Negative (Negative); Blood Urine Negative (Negative); Color Urine Yellow (Yellow); Glucose Urine UA Negative (Negative); Ketones Urine Negative (Negative); Leukocyte Esterase Ur 2+ LEU/UL (Negative); Mucus Urine Rare /lpf; Nitrate Urine Negative (Negative); Protein Urine Negative (Negative); Specific Grav Ur 1.013 (1.001-1.035); Squamous Epithelial Cell Urine Occasional /hpf (Few); Urobilinogen Urine Negative mg/dL (<2.0); WBC Urine >75 /hpf
[2021-02-17 21:11] LABS: Prothrombin Time 13.3 Seconds (11.1-14.7)
[2021-02-17 21:12] LABS: Partial Thromboplastin Time 23.8 SECONDS (22.3-36.8)
[2021-02-17 21:16] LABS: Alanine Aminotransferase 29 U/L (4-35); Albumin Level 3.5 g/dL (3.5-5.1); Alkaline Phosphatase 171 U/L (38-126); Anion Gap 12 mmol/L (8-16); Aspartate Amino Transferase 82 U/L (14-36); Bilirubin,Total 0.7 mg/dL (0.2-1.3); Blood Urea Nitrogen 12 mg/dL (7-17); Calcium 9.4 mg/dL (8.4-10.2); Carbon Dioxide 21 mmol/L (22-30); Chloride 107 mmol/L (98-107); Estimated CRCL calculation 29 ml/min; Estimated Glomerular Filt Rate 50; Glucose 96 mg/dL (65-110); Lipase 93 U/L (23-300); Potassium 4.1 mmol/L (3.4-5.0); Sodium 140 mmol/L (137-145)
[2021-02-17 21:28] LABS: Lymphocytes Absolute Manual 1.34 K/mm3 (1.1-4.5); Monocytes Percent Manual 9 % (3-9); Neutrophils Percent Manual 71 % (46-73); Nucleated Red Blood Cells 4 %; Total Cells Counted 100
[2021-02-17 21:29] LABS: Anisocytosis 3+ (NORMAL); Hypochromasia 1+ (NORMAL); Platelet Estimate Decreased (Adequate)
[2021-02-17 21:30] LABS: Polychromasia 1+ (NORMAL)
[2021-02-17 21:33] VITALS: BP 119/42; PULSE 108; RESP 18; O2SAT 98
[2021-02-17] MEDS: SODIUM CHLORIDE 0.9% IV 1,000 ML 999 ML IV CONT (21:34)
[2021-02-17] MEDS: ONDANSETRON INJ 4 MG/2 ML VIAL IV PUSH (21:35)
[2021-02-17] MEDS: fentaNYL CITRATE INJ (*CRX) 100 MCG/2 ML VIAL 50 MCG IV PUSH (21:35)
[2021-02-17] MEDS: PANTOPRAZOLE SODIUM IV 40 MG VIAL IV PUSH (21:35)
[2021-02-17 23:13] VITALS: BP 102/45; PULSE 105; RESP 18; O2SAT 98
--- NOTE | 2021-02-17 23:17 | PM.IMHP ---
H&P: HPI History of Present Illness Date/Time: 02/17/21 23:17 Chief Complaint: Abdominal pain Narrative: This is a 60-year-old female with past medical history significant for non-small lung cell carcinoma, breast carcinoma, cervical carcinoma patient with bony and brain metastases and carcinomatosis, duodenal ulcer. Recent discharge from [facility] patient now comes back due to abdominal pain unable to eat or drink ,has been having nausea and vomiting as well, she denies any fevers ,any rigors, any chills, no hematemesis, no melena, no hematochezia, no hemoptysis,no syncope or near syncope, no shortness of breath, no cough, no sputum production. Patient is considering hospice however she wants to discuss this decision with her son and her daughter. Patient has been placed in observation for better pain controlled. Review of Systems Review of Systems: Abdominal pain, nausea vomiting, poor oral intake. Constitutional: Constitutional: Denies chills, Reports fatigue, Denies fever(s), Reports lethargy, Denies malaise, Denies night sweats, Reports poor appetite and Reports weakness Eyes: Eyes: Denies change in vision ENT: Denies dysphagia, Denies vertigo, Denies dizziness, Denies nasal discharge, Denies nasal obstruction and Denies odynophagia Cardiovascular: Cardiovascular: Denies irregular heart rhythm, Denies claudication, Denies lightheadedness, Denies radiating jaw, neck or arm pain, Denies palpitations, Denies dyspnea, Denies dyspnea on exertion and Denies orthopnea Respiratory: Respiratory: Denies change in phlegm color, Denies cough, Denies excessive phlegm production, Denies dyspnea and Denies wheezing Gastrointestinal: Gastrointestinal: Reports abdominal pain, Reports dyspepsia, Denies heartburn, Reports nausea and Reports vomiting Genitourinary: Genitourinary: Reports no additional female genitourinary complaints and Reports as per HPI Musculoskeletal: Musculoskeletal: Reports back pain and Reports myalgias Integumentary/Breasts: Skin/Breast: Denies rash and Denies wounds Neurologic: Denies focal weakness and Denies Sensory deficit (Neuro) Psychiatric: Psychiatric: Reports no additional psychiatric complaints Endocrine: Endocrine: Reports no additional endocrine complaints and Reports as per HPI Hematologic/Lymphatic: Hematologic/Lymphatic: Reports lymphadenopathy Allergic/Immunologic: Allergic/Immunologic: Reports no additional allergic/immunologic complaints and Reports as per [facility] Past Medical History Medical History (Updated 02/18/21 @ 03:58 by Sommer Diaz MD) Adenosquamous carcinoma of cervix (~05/2020) FIGO stage IIb grade 3 status post LEEP and pelvic external beam radiation, completed 09/21/2020. Anxiety Bilateral breast cancer (03/2019) Invasive ductal carcinoma status post bilateral lumpectomy with positive lymph node. Patient refused mastectomy and chemotherapy but was amenable to radiation therapy however PET in October 2019 showed possible cervical cancer and she elected to forego further cancer directed treatment. 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 Brain metastases (02/2017) Non-small cell cancer of the lung metastatic to the right occipital lobe, status post resection in February 2017 and stereotactic radiation in April 2017. COVID-19 (01/2020) Depression Headache Non-small cell cancer of right lung (05/2016) Right Pancoast tumor discovered in May 2016 status post neoadjuvant chemoradiotherapy (chemo discontinued early due to toxicity) and right upper lobe lobectomy in September 2016 with additional adjuvant radiation in October 2016. Found to have metastatic disease to the brain in February 2017 status post resection and stereotactic radiation completed in April 2017. Thereafter received stereotactic radiation to a solitary FDG-avid right lower lobe pulmonary nodule in April and May 2018. Seizure disorder Tobacco abuse
[2021-02-17] MEDS: fentaNYL CITRATE INJ (*CRX) 100 MCG/2 ML VIAL 25 MCG IV PUSH (23:43)
[2021-02-18] VITALS (12 sets, daily range): BP systolic 94–119; BP diastolic 42–85; PULSE 98–105; RESP 16–20; TEMP 36.3–36.7; O2SAT 92–97; BMI 15.7
[2021-02-18] MEDS: SODIUM CHLORIDE 0.9% IV 1,000 ML 999 ML IV CONT (01:54)
--- NOTE | 2021-02-18 02:40 | PC.NURSE ---
Upon verifying allergies it was found that this pt is allergic to Cipro. Levoflaxacin was ordered for this pt and this RN administered the dose of medication. After administration this RN was notified by pharmacy that the two medications are in the same family of antibiotics. No reaction noted by this RN and the pt has no complaints of any reaction. medical assembler, EDP, and hospitalist made aware.
--- NOTE | 2021-02-18 02:49 | ADMGEN ---
This patient, Noelle Curiel, was admitted to Medical Room 342-01. Patient/family oriented to hospital policies and general routines including ID bracelet, bed and alarms, visiting hours, pain management, procedures, bathroom and other care routines, personal items, smoking policy, room service/diet, and visiting hours. Information on how to activate the Rapid Response Team has been discussed. Patient/Family are encouraged to report perceived risks to care and to ask questions if they do not understand what they are told or what they should do.
[2021-02-18] MEDS: HYDROmorphone HCL INJ (*CRX) 1 MG/ML SYR IV PUSH ×2 (04:09→07:32)
[2021-02-18] MEDS: DEXTROSE 5%/0.45% SOD CHL 1,000 ML 75 ML IV CONT ×2 (04:13→17:05)
[2021-02-18] MEDS: SUCRALFATE SUSP 100 MG/ML 10 ML UDC 1000 MG PO ×4 (06:52→23:52)
[2021-02-18] MEDS: polyethylene glycoL 3350 17 GM POWD.PACK PO (09:43)
[2021-02-18] MEDS: oxyCODONE HCL (*CRX) 10 MG TAB SR 12HR PO (09:43)
[2021-02-18] MEDS: PANTOPRAZOLE SODIUM IV 40 MG VIAL IV PUSH (09:44)
--- NOTE | 2021-02-18 13:51 | PM.IMPN ---
Progress Note: A&P Assessment and Plan (1) Metastatic cancer: Qualifiers: Area of secondary neoplastic involvement: bone Qualified Code(s): C79.51 - Secondary malignant neoplasm of bone Code(s): C79.9 - Secondary malignant neoplasm of unspecified site Status: Acute Assessment and Plan: She has breast and lung cancer with metastases to brain, bone, and peritoneum. Follows with [facility] and scheduled for PET scan on 02/21/2021. Patient's daughter reports she does not plan on attending as she wishes to stop all further treatment Hospice consultation. Please see subjective for further details. following a later discussion with the patients daughter, she reports they would like to have oncology consultation to discuss treatment options. Will proceed with consultation to Dr. Jennings. She states that they are not interested in hospice consultation at this time (2) Abdominal pain: Qualifiers: Abdominal location: generalized Qualified Code(s): R10.84 - Generalized abdominal pain Code(s): R10.9 - Unspecified abdominal pain Status: Acute Assessment and Plan: Likely secondary to bony metastasis and peritoneal metastasis Supportive care. Analgesics available as needed (3) Nausea and vomiting: Code(s): R11.2 - Nausea with vomiting, unspecified Status: Acute Assessment and Plan: Resolved. Continue regular diet as tolerated Gentle IV fluids until p.o. intake is improved Supportive care (4) Abnormal urinalysis: Code(s): R82.90 - Unspecified abnormal findings in urine Status: Acute Assessment and Plan: UA abnormal on presentation with 2+ leuk esterase and >75 WBC. She is unable to indicate urinary symptoms though her daughter notes she developed incontinence. Initiate IV ceftriaxone. Aware of documented cefaclor allergy, reaction is muscle spasms. Will monitor closely. Urine culture is pending. Await results and tailor antibiotics accordingly (5) Thrombocytopenia: Code(s): D69.6 - Thrombocytopenia, unspecified Status: Acute Assessment and Plan: Platelet count is low. Likely related to bone marrow suppression from metastatic disease Appreciate hematology/oncology consultation (6) Anemia: Code(s): D64.9 - Anemia, unspecified Status: Acute Assessment and Plan: Hemoglobin hematocrit also low, again likely related to bone marrow suppression. Continue to monitor H&H She does have development of macrocytosis. Vitamin B12 and folate reviewed and are within normal limits. Appreciate hematology/oncology eval Subjective Date/time seen: 02/18/21 13:51 Interval history: Date of service: 02/18/2021 Noelle Curiel is a 60-year-old female with a history of cervical cancer, breast cancer and lung cancer with with bone and brain metastases, seizure disorder, depression, and anxiety who is seen in follow-up for abdominal pain with nausea and vomiting. She is feeling quite fatigued during my encounter. She tells me her abdominal pain is slightly improved. She has not had anything to eat yet. She denies any further nausea or vomiting. She reports feeling weak. She denies shortness of breath. At the patient's request, I had a long conversation with her daughter. Her daughter informed me of, her medical background, stating that she was last seen by Oncology in November and had an appointment scheduled for 02/21/[address] Jeninngs to have a repeat PET scan. The patient's daughter states patient does not want to attend this appointment I she has no plans for continuing with further treatment. The patient and her daughter have discussed hospice and would like to proceed with an informational meeting. Review of Systems Review of Systems: All systems reviewed & are unremarkable except as noted in HPI and below Exam Narrative: Ms. Curiel is frail, ill-ap
[2021-02-18] MEDS: HYDROcodone/acetaminophen (*CRX) 10-325 MG TABLET 1 TAB PO ×2 (16:16→21:43)
[2021-02-18] MEDS: ONDANSETRON INJ 4 MG/2 ML VIAL IV PUSH (16:17)
[2021-02-19 04:19] VITALS: BP 98/46; PULSE 103; RESP 18; TEMP 36.6; O2SAT 92
[2021-02-19] MEDS: SUCRALFATE SUSP 100 MG/ML 10 ML UDC 1000 MG PO ×3 (05:21→16:54)
[2021-02-19 05:51] LABS: Hematocrit 25.1 % (37.0-47.0); Hemoglobin 7.4 g/dL (12.0-15.0); Immature Platelet Fraction Pct 11.3 % (0.9-11.2); Mean Corpuscular HGB Conc 29.5 g/dl (32-36); Platelet Count Result 61 k/mm3 (150-375); Red Blood Count 2.39 M/mm3 (4.2-5.4); Red Cell Distribution Width 22.7 % (11.5-14.5); White Blood Count 7.7 K/mm3 (4.5-10.0)
[2021-02-19 06:05] LABS: Anion Gap 11 mmol/L (8-16); Blood Urea Nitrogen 12 mg/dL (7-17); Carbon Dioxide 19 mmol/L (22-30); Chloride 107 mmol/L (98-107); Estimated CRCL calculation 19 ml/min; Estimated Glomerular Filt Rate 31; Glucose 101 mg/dL (65-110); Potassium 4.4 mmol/L (3.4-5.0); Sodium 137 mmol/L (137-145)
[2021-02-19 07:04] LABS: Band Neutrophils Percent 1 % (0-6); Lymphocytes Absolute Manual 1.23 K/mm3 (1.1-4.5); Monocytes Absolute Manual 0.53 K/mm3 (0.1-0.90); Monocytes Percent Manual 7 % (3-9); Neutrophils Absolute Manual 5.92 K/mm3 (1.7-7.2); Neutrophils Percent Manual 76 % (46-73); Nucleated Red Blood Cells 4 %; Total Cells Counted 100
[2021-02-19 07:05] LABS: Platelet Estimate Decreased (Adequate)
[2021-02-19 07:07] LABS: Anisocytosis 1+ (NORMAL); Howell Jolly Bodies 1+ (NORMAL); Schistocytes 1+ (NORMAL)
[2021-02-19] MEDS: polyethylene glycoL 3350 17 GM POWD.PACK PO (08:56)
[2021-02-19] MEDS: HYDROcodone/acetaminophen (*CRX) 10-325 MG TABLET 1 TAB PO ×2 (09:41→19:59)
[2021-02-19] MEDS: PANTOPRAZOLE SODIUM IV 40 MG VIAL IV PUSH (10:14)
[2021-02-19 11:48] VITALS: BP 103/39; PULSE 99; RESP 14; TEMP 36.4; O2SAT 90
--- NOTE | 2021-02-19 12:27 | PM.IMPN ---
Progress Note: A&P Assessment and Plan (1) Metastatic cancer: Qualifiers: Area of secondary neoplastic involvement: bone Qualified Code(s): C79.51 - Secondary malignant neoplasm of bone Code(s): C79.9 - Secondary malignant neoplasm of unspecified site Status: Acute Assessment and Plan: She has breast and lung cancer with metastases to brain, bone, and peritoneum. Follows with [facility] and scheduled for PET scan on 02/21/2021. pt wishes to try active treatments pt seen DR Jennings before in [place] will reconsult continue pain control (2) Abdominal pain: Qualifiers: Abdominal location: generalized Qualified Code(s): R10.84 - Generalized abdominal pain Code(s): R10.9 - Unspecified abdominal pain Status: Acute Assessment and Plan: Likely secondary to bony metastasis and peritoneal metastasis Supportive care. pain control laxatives (3) Nausea and vomiting: Code(s): R11.2 - Nausea with vomiting, unspecified Status: Acute Assessment and Plan: Resolved. Supportive care iv fluids iv antiemetics (4) Abnormal urinalysis: Code(s): R82.90 - Unspecified abnormal findings in urine Status: Acute Assessment and Plan: UA abnormal on presentation with 2+ leuk esterase and >75 WBC. She is unable to indicate urinary symptoms though her daughter notes she developed incontinence. on iv rocephin follow urine cultures (5) Thrombocytopenia: Code(s): D69.6 - Thrombocytopenia, unspecified Status: Acute Assessment and Plan: Platelet count is low. continue to monitor Likely to bone marrow suppression from metastatic disease (6) Anemia: Code(s): D64.9 - Anemia, unspecified Status: Acute Assessment and Plan: Hemoglobin hematocrit also low, again likely related to bone marrow suppression.continue to monitor Subjective Date/time seen: 02/19/21 12:27 Interval history: Pt has past medical history significant for non-small lung cell carcinoma, breast carcinoma, cervical carcinoma patient with bony and brain metastases and carcinomatosis, duodenal ulcer. Pt admitted with abdominal pain, pt here for pain control and low Bps. Pt has seen oncology once pain free here can follow with him in his clinic for chemo/ immunotherapy. Pt does not want hospice. Pt is also found to have UTI. Review of Systems Review of Systems: All systems reviewed & are unremarkable except as noted in HPI and below Exam Const: General: ill appearing and lethargic Orientation/consciousness: oriented to person HENMT: Head: normal to inspection Resp: Effort & Inspection: no respiratory distress Auscultation: no rhonchi and no wheezes Cardio: Rate: regular rate Rhythm: regular rhythm GI: Inspection: normal to inspection GI Palp: No abdominal tenderness, No Guarding due to palpation present (GI) and No Hepatomegaly present Auscultation: normal bowel sounds Neuro: General: oriented to person Objective Data Vital Signs Vital Signs: Vital Signs - 24 hr 02/18/21 12:32 02/18/21 17:17 02/18/21 19:52 Temperature 36.7 C 36.7 C Pulse Rate 100 101 H 100 Respiratory Rate 16 16 18 Blood Pressure 94/54 L 98/58 L Pulse Oximetry 92 94 94 02/18/21 20:40 02/18/21 23:53 02/19/21 04:19 Temperature 36.3 C L 36.6 C 36.6 C Pulse Rate 98 102 H 103 H Respiratory Rate 18 18 18 Blood Pressure 96/48 L 102/48 L 98/46 L Pulse Oximetry 94 94 92 02/19/21 11:48 Temperature 36.4 C L Pulse Rate 99 Respiratory Rate 14 Blood Pressure 103/39 L Pulse Oximetry 90 Intake/Output Intake/Output: Intake & Output 02/16/21 02/17/21 02/18/21 02/19/21 23:59 23:59 23:59 23:59 Intake Total 1000 2800 340 Output Total 100 600 175 Balance 900 2200 165 Meds/Results Medications: Active Medications Generic Name Dose Route Start Last Admin Trade Name Freq PRN Reason Stop Dose Admi
[2021-02-19] MEDS: MIDODRINE HCL 2.5 MG TABLET PO ×2 (13:39→16:54)
[2021-02-19 16:00] VITALS: BP 134/71; PULSE 103; RESP 16; TEMP 36.4; O2SAT 99
[2021-02-19] MEDS: ONDANSETRON INJ 4 MG/2 ML VIAL IV PUSH (16:54)
[2021-02-19] MEDS: DOCUSATE SODIUM 100 MG CAPSULE PO (19:59)
[2021-02-19] MEDS: SENNA/DOCUSATE SODIUM TABLET 1 TAB PO (19:59)
[2021-02-19 20:00] VITALS: BP 113/65; PULSE 108; RESP 21; TEMP 36.9; O2SAT 100
[2021-02-19 20:10] VITALS: O2SAT 92
[2021-02-20] VITALS (9 sets, daily range): BP systolic 93–114; BP diastolic 36–70; PULSE 83–106; RESP 16–20; TEMP 36.3–36.8; O2SAT 93–99
[2021-02-20] MEDS: SUCRALFATE SUSP 100 MG/ML 10 ML UDC 1000 MG PO ×5 (00:14→23:29)
[2021-02-20] MEDS: HYDROcodone/acetaminophen (*CRX) 10-325 MG TABLET 1 TAB PO (06:13)
[2021-02-20 07:57] LABS: Hematocrit 24.3 % (37.0-47.0); Hemoglobin 7.2 g/dL (12.0-15.0); Mean Corpuscular HGB Conc 29.6 g/dl (32-36); Mean Corpuscular Hemoglobin 29.5 pg (26-34); Mean Corpuscular Volume 99.6 fl (80-100); Mean Platelet Volume 12.1 fl (7.4-10.4); Platelet Count Result 62 k/mm3 (150-375); Red Blood Count 2.44 M/mm3 (4.2-5.4); Red Cell Distribution Width 22.5 % (11.5-14.5); White Blood Count 8.3 K/mm3 (4.5-10.0)
[2021-02-20] MEDS: MIDODRINE HCL 2.5 MG TABLET PO ×2 (08:50→16:57)
[2021-02-20] MEDS: PANTOPRAZOLE SODIUM IV 40 MG VIAL IV PUSH (08:50)
[2021-02-20] MEDS: DOCUSATE SODIUM 100 MG CAPSULE PO ×2 (08:50→19:38)
[2021-02-20] MEDS: polyethylene glycoL 3350 17 GM POWD.PACK PO (08:51)
--- NOTE | 2021-02-20 11:16 | PM.IMPN ---
Progress Note: A&P Assessment and Plan (1) Metastatic cancer: Qualifiers: Area of secondary neoplastic involvement: bone Qualified Code(s): C79.51 - Secondary malignant neoplasm of bone Code(s): C79.9 - Secondary malignant neoplasm of unspecified site Status: Acute Assessment and Plan: She has breast and lung cancer with metastases to brain, bone, and peritoneum. Follows with [facility] and scheduled for PET scan on 02/21/2021. Pt agreeable to hospice but eveline follow with Dr Jennings for immunotherapy. continue pain control start roxanol and norco for pain start ativan for anxiety (2) Abdominal pain: Qualifiers: Abdominal location: generalized Qualified Code(s): R10.84 - Generalized abdominal pain Code(s): R10.9 - Unspecified abdominal pain Status: Acute Assessment and Plan: Likely secondary to bony metastasis and peritoneal metastasis Supportive care. pain control laxatives (3) Nausea and vomiting: Code(s): R11.2 - Nausea with vomiting, unspecified Status: Acute Assessment and Plan: Resolved. Supportive care change to oral medications (4) Abnormal urinalysis: Code(s): R82.90 - Unspecified abnormal findings in urine Status: Acute Assessment and Plan: UA abnormal on presentation with 2+ leuk esterase and >75 WBC. She is unable to indicate urinary symptoms though her daughter notes she developed incontinence. pt was on iv rocephin, uc was negative can stop antibiotics (5) Thrombocytopenia: Code(s): D69.6 - Thrombocytopenia, unspecified Status: Acute Assessment and Plan: Platelet count is low. continue to monitor Likely to bone marrow suppression from metastatic disease (6) Anemia: Code(s): D64.9 - Anemia, unspecified Status: Acute Assessment and Plan: Hemoglobin hematocrit also low, again likely related to bone marrow suppression.continue to monitor Subjective Date/time seen: 02/20/21 11:16 Interval history: Pt has past medical history significant for non-small lung cell carcinoma, breast carcinoma, cervical carcinoma patient with bony and brain metastases and carcinomatosis, duodenal ulcer. Pt admitted with abdominal pain, pt here for pain control and low Bps. Pt has seen oncology, can follow with him in his clinic for immunotherapy. Pt and family in agreeable to hospice care. Change pt to oral medications today and discharge tomorrow. Awaiting Hospice Equipment to be delivered. Exam Const: General: ill appearing and lethargic Orientation/consciousness: oriented to person and lethargic HENMT: Head: normal to inspection Resp: Effort & Inspection: no respiratory distress Auscultation: no rhonchi and no wheezes Cardio: Rate: regular rate Rhythm: regular rhythm GI: Inspection: normal to inspection Auscultation: normal bowel sounds Neuro: General: oriented to person Objective Data Vital Signs Vital Signs: Vital Signs - 24 hr 02/19/21 11:48 02/19/21 16:00 02/19/21 20:00 Temperature 36.4 C L 36.4 C 36.9 C Pulse Rate 99 103 H 108 H Respiratory Rate 14 16 21 H Blood Pressure 103/39 L 134/71 113/65 Pulse Oximetry 90 99 100 02/19/21 20:10 02/20/21 00:00 02/20/21 04:00 Temperature 36.7 C 36.7 C Pulse Rate 102 H 83 Respiratory Rate 20 20 Blood Pressure 93/46 L 114/70 Pulse Oximetry 92 99 99 02/20/21 08:12 Temperature 36.8 C Pulse Rate 101 H Respiratory Rate 16 Blood Pressure 102/43 L Pulse Oximetry 93 Intake/Output Intake/Output: Intake & Output 02/17/21 02/18/21 02/19/21 02/20/21 23:59 23:59 23:59 23:59 Intake Total 1000 2800 1340 820 Output Total 100 600 275 600 Balance 900 2200 1065 220 Meds/Results Medications: Active Medications Generic Name Dose Route Start Last Admin Trade Name Freq PRN Reason Stop Dose Admin Acetaminophen 650 mg 02/18/21 16:10 Acetaminop
[2021-02-20] MEDS: HYDROcodone/acetaminophen (*CRX) 5-325 MG TABLET 1 TAB PO ×2 (12:34→19:38)
[2021-02-20] MEDS: SENNA/DOCUSATE SODIUM TABLET 1 TAB PO (19:38)
[2021-02-20] MEDS: FAMOTIDINE 20 MG TABLET PO (19:38)
[2021-02-21] MEDS: SUCRALFATE SUSP 100 MG/ML 10 ML UDC 1000 MG PO ×2 (05:15→11:04)
[2021-02-21 05:16] VITALS: BP 98/48; PULSE 98; RESP 17; TEMP 36.6; O2SAT 100
[2021-02-21] MEDS: HYDROcodone/acetaminophen (*CRX) 5-325 MG TABLET 1 TAB PO (07:57)
[2021-02-21 08:36] LABS: Hematocrit 26.3 % (37.0-47.0); Hemoglobin 7.6 g/dL (12.0-15.0); Immature Platelet Fraction Pct 11.9 % (0.9-11.2); Mean Corpuscular HGB Conc 28.9 g/dl (32-36); Mean Corpuscular Hemoglobin 29.8 pg (26-34); Mean Corpuscular Volume 103.1 fl (80-100); Platelet Count Result 65 k/mm3 (150-375); Red Blood Count 2.55 M/mm3 (4.2-5.4); Red Cell Distribution Width 23.1 % (11.5-14.5); White Blood Count 8.4 K/mm3 (4.5-10.0)
--- NOTE | 2021-02-21 09:36 | PM.DS ---
DS: Admitting Diagnosis Discharge Date 02/21/2021 Admitting Diagnosis Abdominal pain DS: Discharge Diagnosis Discharge Diagnosis (1) Encounter for hospice care discussion: Code(s): Z71.89 - Other specified counseling Status: Acute Assessment and Plan: Discharged home with [facility] hospice. All further care per hospice. (2) Metastatic cancer: Qualifiers: Area of secondary neoplastic involvement: bone Qualified Code(s): C79.51 - Secondary malignant neoplasm of bone Code(s): C79.9 - Secondary malignant neoplasm of unspecified site Status: Acute Assessment and Plan: She has breast and lung cancer with metastases to brain, bone, and peritoneum. Followed by [facility] Ultimately opted for hospice care which was arranged with [facility] and anxiolytics as needed (3) Abdominal pain: Qualifiers: Abdominal location: generalized Qualified Code(s): R10.84 - Generalized abdominal pain Code(s): R10.9 - Unspecified abdominal pain Status: Acute Assessment and Plan: Likely secondary to bony metastasis and peritoneal metastasis. Supportive care. (4) Nausea and vomiting: Code(s): R11.2 - Nausea with vomiting, unspecified Status: Acute Assessment and Plan: Resolved. (5) Abnormal urinalysis: Code(s): R82.90 - Unspecified abnormal findings in urine Status: Acute Assessment and Plan: UA abnormal on presentation with 2+ leuk esterase and >75 WBC. She was unable to indicate urinary symptoms. Started on IV Rocephin which was discontinued upon return of negative urine culture. (6) Thrombocytopenia: Code(s): D69.6 - Thrombocytopenia, unspecified Status: Acute Assessment and Plan: Platelet count low, likely to bone marrow suppression from metastatic disease (7) Anemia: Code(s): D64.9 - Anemia, unspecified Status: Acute Assessment and Plan: Hemoglobin and hematocrit also low, again likely related to bone marrow suppression. H&H remained stable. (8) Hypotension: Code(s): I95.9 - Hypotension, unspecified Status: Acute Assessment and Plan: Blood pressure was soft but remained stable. DS: Summary Hospital Course Hospital Course: Date of admission: 02/17/2021 Date of discharge: 02/21/2021 Noelle Curiel is a 60-year-old female with a history of cervical cancer, breast cancer and lung cancer with with bone and brain metastases, seizure disorder, depression, and anxiety who presented to the emergency department on 02/17/2021 with complaints of abdominal pain poor appetite, and vomiting. On presentation to the emergency department, her vital signs were stable, she is afebrile, H&H decreased, platelet count was low, creatinine elevated, additional electrolytes stable, and CT chest/abdomen/pelvis showed extensive osteoblastic or osteolytic disease, evidence of metastatic disease in the right lower lobe liver hypodensities concerning for metastatic disease, trace ascites with omental nodularity concerning for peritoneal carcinomatosis. She was admitted to the hospitalist service for further evaluation and management was seen in consultation by Oncology. Patient and family opted to proceed with hospice care and she was discharged to hospice on 02/21/2021. All further care will be per hospice. Status at Discharge Overall status at discharge: patient is not back to baseline Time Spent with Patient Time attestation: Total time spent providing and/or coordinating discharge services: 45 minutes Time spent: Greater than 30 minutes Exam Narrative: Ms. Curiel is frail, ill-appearing 60-year-old female who is lying supine in bed. She appears comfortable and is in NARD. Neuro: awake, answering questions appropriately, speech clear, no focal neuro deficits noted HEENMT: normocephalic, atraumatic, EOMI, sclerae anicteric, moist
[2021-02-21] MEDS: polyethylene glycoL 3350 17 GM POWD.PACK PO (10:01)
[2021-02-21] MEDS: DOCUSATE SODIUM 100 MG CAPSULE PO (10:01)
[2021-02-21] MEDS: MIDODRINE HCL 2.5 MG TABLET PO (10:01)
[2021-02-21] MEDS: FAMOTIDINE 20 MG TABLET PO (10:04)
[2021-02-21] MEDS: BISACODYL 10 MG SUPPOSITORY RECTAL (11:04)
== END 2021-02-21 13:00 | disposition hospice, home (50) | DRG 375 ==
LOC: ANHED 23:41 → ANH3MED 02-18 03:24
PROVIDERS: Family Medicine; Admitting Provider Internal Medicine; Emergency Provider Emergency Medicine; PCP Emergency Medicine; Visit Provider Physician Assistant
DX: C78.6 Secondary malignant neoplasm of retroperitoneum and peritoneum (principal); C79.51 Secondary malignant neoplasm of bone; C79.31 Secondary malignant neoplasm of brain; C34.91 Malignant neoplasm of unspecified part of right bronchus or lung; C53.9 Malignant neoplasm of cervix uteri, unspecified; I95.9 Hypotension, unspecified; R82.90 Unspecified abnormal findings in urine; R11.2 Nausea with vomiting, unspecified; D69.6 Thrombocytopenia, unspecified; D64.9 Anemia, unspecified; F32.A Depression, unspecified; G40.909 Epilepsy, unspecified, not intractable, without status epilepticus; F41.9 Anxiety disorder, unspecified; Z28.21 Immunization not carried out because of patient refusal; Z86.16 Personal history of COVID-19; Z87.11 Personal history of peptic ulcer disease; Z87.891 Personal history of nicotine dependence; Z90.2 Acquired absence of lung [part of]; Z92.3 Personal history of irradiation
CPT/HCPCS: 36415; 51701; 71250; 74176; 80048; 80053; 81001; 83690; 85025; 85027; 85055; 85610; 85730; 87086; 96361; 96374; 96375; 99285; A9270; C9113; J0696; J1170; J1956; J2405; J3010; J7030